=== PATIENT | female | born 1940 | race Caucasian/White ===

== ENCOUNTER 2024-08-18 11:32 | Emergency (ER) | payer MEDICARE, SELFPAY ==
[2024-08-18 11:38] VITALS: BP 125/67; PULSE 107; RESP 18; TEMP 36.6; O2SAT 92; BMI 20.6
--- NOTE | 2024-08-18 11:40 | ED_ITS ---
HPI - Skin/Abscess/Foreign Bdy General Chief complaint: Skin/Abscess/Foreign Body Stated complaint: lump in RT arm Time Seen by Provider: 08/18/24 11:52 Source: patient and family Mode of arrival: ambulatory Limitations: no limitations History of Present Illness ED Provider: Nicolas Heath PA-C HPI narrative: 84 yo female presenting to the ER for evaluation of a painful, red, enlarging lump on the upper right arm for the last 5 days. Daughter is concerned it is infected from a spider bite or her scratching it because it started as a small hole and now has a black scab, reddened skin and is much larger that it has been. She reports history of a small cyst in the same area that has never been infected or drained before. There has been purulent drainage the last 2 days. no fevers. no hx DM. no other lesions. MD complaint: abscess/boil Onset (ago): day(s) (5) Tetanus up to date: yes Location: RUE Severity: moderate Severity scale (1-10): 5 Quality: dull Relieving factors: rest Exacerbating factors: palpation Context: none Associated symptoms: denies other symptoms Treatments prior to arrival: bandages Related Data Previous Rx's ?Medication ?Instructions ?Recorded cephalexin 500 mg capsule 500 mg PO Q6H 5 days #20 caps 08/18/24 doxycycline monohydrate 100 mg 100 mg PO BID #10 tabs 08/18/24 tablet Allergies Allergy/AdvReac Type Severity Reaction Status Date / Time celecoxib [From Celebrex] Allergy Palpitation Verified 08/18/24 11:40 s Review of Systems Review of Systems: Yes all other systems are reviewed and are negative [facility] Social History Social History Advance Directives: No Advance Directives Information Provided: Yes Physical Exam Vital Signs: Vital Signs: Last Vital Signs Temp 98 F 08/18/24 11:38 Pulse 107 H 08/18/24 11:38 Resp 18 08/18/24 11:38 BP 125/67 08/18/24 11:38 Pulse Ox 92 08/18/24 11:38 BMI result Body Mass Index 20.6 Appearance: Alert. Oriented X3. No acute distress. HEENT: normal inspection CVS: Normal heart rate and rhythm. Pulses in RUE normal. Respiratory: No respiratory distress. Skin: Skin warm and dry. Normal skin color. Normal skin turgor. No rashes. Extremities: right upper arm with a 4cm round area of swelling, tenderness with central erythema and eschar scab 1cm, +fluctuance and mild induration. Neuro: Oriented X 3. grossly normal, nonfocal. steady gait Course Course Course Narrative: This is a Rapid Medical Examination (RME) performed by Nicolas Heath PA-C in triage. Full HPI, ROS, assessment and treatment plan per primary provider in the Main ED. 84 yo female presents to the ER for evaluation of a painful lump on the right upper arm for the last 5 days. daughter thinks she may have gotten bitten by a spider, it started as a small hole. has had purulent drainage and now has a large black scab. no fevers. no hx dm. on exam there is a 4cm area of swelling in the upper arm with partial erythema and warmth, eshcar and fluctuance centrally. Plan: I&D, abx Medications Administered Discontinued Medications Generic Name Dose Route Start Last Admin Trade Name Freq PRN Reason Stop Dose Admin Lidocaine HCl 2 ml 08/18/24 11:52 08/18/24 12:12 Lidocaine Hcl 1 % Mpf 2 Ml Vial INFILTRATI 08/18/24 11:53 2 ml ONCE ONE Administration Medical Decision Making Medical Decision Making MDM Narrative: 84 yo female presenting for evaluation of a painful lump to the right upper arm for the last 5 days. she has a history of a small cyst in the area for years but never has been this large, red, or painful exam is c/w an inflammed and infected cyst. I&D today with large volume of foul smelling purulent material. area was packed will prescribe abx given overlying cellulitis advised she will likely need dermatology follow up for possible cyst excision - she has been seen at [facility] in the past stable for d/c home, advised to return for packing removal in 2-3 days Differential Diagnosis Differential Diagnoses: The differential diagnosis associated with the presentation includes abscess, cyst, spider bite, cellulitis Independent Historian Clinical information obtained from an independent historian. History obtained from or confirmed by: Other (adult daughter wilfrido who helped translate) Prescription Management I considered prescription management with: Pain Medication and Antibiotic Procedures Abscess I/D Site: upper extremity Side (if applicable): right Local Anesthetic: lidocaine 1% Amount of anesthesia used (mL): 1 Technique: incised with blade Sent for culture/gram staining?: No Irrigation: Yes Packing used?: iodoform Critical Care Time Critical Care Time Critical Care Time: No Discharge Plan Discharge Clinical Impression: Abscess of skin or subcutaneous tissue Qualifiers: Site of cutaneous abscess: extremity Site of cutaneous abscess of extremity: upper extremity Laterality: right Qualified Code(s): L02.413 - Cutaneous abscess of right upper limb Patient Disposition: Home, Self-Care Instructions: Abscess Incision and Drainage (DC) Additional Instructions: Take the prescribed antibiotics as directed, complete the entire course and do not miss any doses The packing will need to be removed in 2-3 days, you can see your doctor or return to the ER for this Recommend following up with Dermatology for further evaluation and treatment, possible excision of the cyst wall If you develop new or worsening symptoms call 911 or come back to the ER for further evaluation. Prescriptions: New doxycycline monohydrate 100 mg tablet 100 mg PO BID Qty: 10 0RF cephalexin 500 mg capsule 500 mg PO Q6H 5 Days Qty: 20 0RF Discharge Date/Time: 08/18/24 12:24 Print Language: Citizen Of [place]
[2024-08-18] MEDS: Lidocaine HCl 1 % MPF 2 ML VIAL INFILTRATI (12:12)
== END 2024-08-18 12:24 | disposition home or self-care (01) ==
PROVIDERS: Emergency Provider Emergency Medicine
DX: L02.413 Cutaneous abscess of right upper limb (principal); M79.621 Pain in right upper arm
CPT/HCPCS: 10060; 99282; 99284; J2003

== ENCOUNTER 2024-11-27 13:54 | Inpatient (IN) | payer MEDICARE, SELFPAY ==
[2024-11-27] VITALS (13 sets, daily range): BP systolic 97–138; BP diastolic 39–120; PULSE 114–136; RESP 16–29; TEMP 36.1–38.1; O2SAT 2–98; BMI 23.2
--- NOTE | ~2024-11-27 | XR_ITS ---
EXAMINATION: XR CHEST CLINICAL INFORMATION: SOB COMPARISON: None available. TECHNIQUE: Frontal view of the chest was obtained. FINDINGS: The cardiac, hilar, and mediastinal contours are normal. Aortic mural calcifications. There is diffuse pulmonary hyperaeration. There is airspace disease in the peripheral left mid and lower lung. No pneumothorax or effusion. No focal osseous or soft tissue abnormality. XR/XR chest 1V IMPRESSION: 1. Pulmonary hyperaeration. 2. Patchy airspace disease mid and lower left lung, suspicious for pneumonia in the appropriate clinical setting. Electronically signed by: Martinez Meyer MD 11/27/2024 03:13 PM EDT
--- NOTE | ~2024-11-27 | XR_ITS ---
EXAMINATION: XR CHEST 1 VIEW HISTORY: pneumonia COMPARISON: Comparison is made with the prior examination dated 12/01/2024. FINDINGS: Two AP portable views of the chest performed at 7:35 AM are submitted. Again seen is a small to moderate left pleural effusion. There is airspace opacity in the left lower lung zone. There are nodular opacities in both lungs as noted on CT 12/03/2024. There is no pneumothorax. The heart is normal in size. The aorta is calcified. The bones are intact. XR/XR chest 1V IMPRESSION: Small to moderate left pleural effusion. Left basilar pneumonia. Nodular opacities in both lungs as noted on chest CT. Electronically signed by: Samson Azevedo MD 12/05/2024 08:06 AM EDT
--- NOTE | ~2024-11-27 | CT_ITS ---
EXAMINATION: CT CHEST WITHOUT CONTRAST CLINICAL INFORMATION: Hypoxia DLP: 140 mGY*cm COMPARISON: Chest x-ray December 01, 2024 DLP: 140 mGY*cm TECHNIQUE: Multidetector volumetric CT imaging of the chest was done. Axial MIP volume rendering provided. Sagittal and coronal reformatted images were obtained. This CT examination was performed using dose optimization techniques as appropriate, variously including the following: *Automated exposure control *Adjustment of mA and/or kV according to patient size (this includes techniques or standardized protocols for targeted exams where dose is matched to indication/reason for exam; i.e. extremities or head) *Use of iterative reconstruction technique FINDINGS: LUNGS: Actually groundglass and airspace opacities are present in the lungs bilaterally. There are air bronchograms in the anteromedial and lateral segments of the left lower lobe as well as inferior segment of lingula. MEDIASTINUM: There is a 14 mm short axis diameter precarinal lymph node. CORONARY ARTERY CALCIFICATION: Present PLEURA: Small right and small to medium left layering pleural effusions are present. AXILLA: No lymphadenopathy. UPPER ABDOMEN: Unremarkable. 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 There are degenerative chronic erosive type changes along the humeral head margins. CT/CT chest wo IV con IMPRESSION: Multifocal pneumonia most advanced in the left lower lung base and lingula. There are layering bilateral pleural effusions, larger on the left. Underlying pulmonary nodules cannot be ruled out. Follow-up to radiographic resolution. Lymphadenopathy. There is an enlarged precarinal lymph node. This could be inflammatory/reactive, but neoplastic adenopathy is not ruled out. Degenerative changes in the shoulder joints with possible marginal erosions raises question of underlying rheumatoid arthritis or other inflammatory arthropathy. 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 Fleischner guidelines were followed. Electronically signed by: Andrea Fregoso MD 12/03/2024 05:24 PM EDT
--- NOTE | ~2024-11-27 | XR_ITS ---
CLINICAL HISTORY: F U Pneumonia 1 view chest x-ray Comparison: CR/AK/SR - XR CHEST 1V - 11/27/24 14:59 EDT Findings: There is a new moderate-sized left pleural effusion and small right pleural effusion. Diffuse patchy opacities throughout the left lung base, as well as patchy opacity at the apices and scattered areas in the right mid and lower lung. Pulmonary vessels appear prominent. Heart size is normal. No acute fracture. IMPRESSION: 1. New moderate left and small right pleural effusions. 2. Diffuse patchy opacities in both lungs which may be infection, pulmonary edema, aspiration. 3. Prominent pulmonary vasculature suggests an element of vascular congestion. This document has been electronically signed by: Shashank Orona MD on 12/01/2024 11:13:32
--- NOTE | 2024-11-27 13:56 | ECG_ITS ---
Test Reason : abnormal ekg Blood Pressure : */* mmHG Vent. Rate : 141 BPM Atrial Rate : 141 BPM P-R Int : 138 ms QRS Dur : 82 ms QT Int : 274 ms P-R-T Axes : 73 13 72 degrees QTcB Int : 419 ms Sinus tachycardia Minimal voltage criteria for LVH, may be normal variant ( Sokolow-James ) Borderline ECG No previous ECGs available Referred By: Depea Randhawa Electronically Signed By: SG BARTLETT
--- NOTE | 2024-11-27 14:19 | ED_ITS ---
HPI - General Adult General Chief complaint: Dyspnea Stated complaint: abnormal ekg Time Seen by Provider: 11/27/24 14:56 Source: patient, family (patient's daughter) and assistant boiler operator (patient declined [facility] assistant boiler operator and requested her daughter interpret) Mode of arrival: ambulatory Limitations: language barrier (patient declined [facility] assistant boiler operator and requested her daughter interpret) History of Present Illness ED Provider: Alejandra Diaz PA-C HPI narrative: Patient is an 84 year old assigned female at with no reported medical history presenting to the emergency department today with a cough and lethargy. Patient states that she has felt generally unwell / weak with coughing over the last 3 days. Patient denies any dizziness, lightheadedness, abdominal pain, nausea, vomiting, fever, chills, blurry vision, double vision, loss of vision, chest pain, difficulty breathing, shortness of breath, back pain, night sweats, pain with urination, increased urinary frequency, increased urinary urgency, blood in her urine or stool, syncope or a near syncopal episode, recent trauma or falls, bowel incontinence, bladder incontinence, or any other complaints at this time. Onset (ago): day(s) (3) Relieving factors: none Exacerbating factors: none Associated symptoms: cough Treatments prior to arrival: none Related Data Allergies Allergy/AdvReac Type Severity Reaction Status Date / Time celecoxib (From Celebrex) Allergy Palpitation Verified 11/27/24 14:21 s Review of Systems 2 Constitutional: Constitutional: Reports no additional constitutional complaints, Denies chills, Denies fever(s), Denies night sweats and Reports weakness Eyes: Eyes: Reports no additional eye complaints, Denies blurry vision, Denies change in vision, Denies diplopia, Denies eye discharge, Denies loss of vision and Denies eye pain ENT: Denies dizziness Cardiovascular: Cardiovascular: Reports no additional cardiovascular complaints, Denies chest pain, Denies lightheadedness, Denies Loss of Consciousness and Denies dyspnea Respiratory: Respiratory: Reports no additional respiratory complaints, Reports cough and Denies dyspnea Gastrointestinal: Gastrointestinal: Reports no additional gastrointestinal complaints, Denies abdominal pain, Denies melena, Denies hematochezia, Denies change in bowel habits and Denies change in stool character Genitourinary: Genitourinary: Denies hematuria, Denies urinary frequency, Denies dysuria, Denies urinary incontinence, Denies urinary hesitancy and Denies urinary urgency Musculoskeletal: Musculoskeletal: Reports no additional musculoskeletal complaints, Denies numbness and Denies tingling Neurologic: Denies dizziness, Denies loss of vision, Denies numbness, Denies tingling and Reports weakness Psychiatric: Psychiatric: Reports no additional psychiatric complaints Endocrine: Endocrine: Reports no additional endocrine complaints Hematologic/Lymphatic: Hematologic/Lymphatic: Reports no additional hematologic/lymphatic complaints Allergic/Immunologic: Allergic/Immunologic: Reports no additional allergic/immunologic complaints PMFSH Past Medical History Attestation statement: The following information was validated with the patient. (all information validated with the patient's daughter) Source: old records reviewed, obtained from family (patient's daughter provided additional history and confirmed the history provided by the patient.) and nursing notes reviewed Social History Social History Smoked in Last 30 Days: Yes Use of substances other than those prescribed or required for medical reasons: No Advance Directives: No Advance Directives Information Provided: Yes Physical Exam ED Vital Signs: Vital Signs - 24 hr 11/27/24 14:15 11/27/24 14:21 11/27/24 14:31 Temperature 98.0 F 100.5 F H Pulse Rate 136 H 132 H 133 H Respiratory Rate 16 20 Blood Pressure 138/110 H 103/39 L Pulse Oximetry 84 L 91 L 96 Oxygen Delivery Method Room Air Nasal Cannula Nasal Cannula Oxygen Flow Rate 3 3 11/27/24 15:31 11/27/24 15:47 Temperature Pulse Rate 125 H 124 H Respiratory Rate 24 H 24 H Blood Pressure 106/52 L 122/120 H Pulse Oximetry 96 96 Oxygen Delivery Method Nasal Cannula Nasal Cannula Oxygen Flow Rate 3 2 BMI result Body Mass Index 23.2 Const General: cooperative, no acute distress, alert and awake Nutritional Appearance: well nourished Orientation/consciousness: patient oriented x3 HENMT Head: Yes normal to inspection and Yes atraumatic Ears: hearing grossly normal bilaterally and external ears normal General nose exam: Normal external nose present, no nasal discharge noted and no epistaxis Face and sinus: Yes normal facial exam, No abrasion and No laceration Mouth: Normal oral and palatal mucosa present, no drooling and no muffled voice Eyes General: appearance normal, both eyes and all related structures Periorbital: periorbital findings normal Eyelids: Yes eyelids normal Conjunctivae: conjunctivae normal Pupils: Equal, round and reactive pupils present EOM: EOMs intact bilaterally Neck Neck: Yes normal visual inspection, Yes full ROM and Yes no lymphadenopathy Resp Effort & Inspection: normal respiratory effort and able to speak in complete sentences Auscultation: rales on the right Cardio Rate: tachycardic Rhythm: regular rhythm Neuro General: patient oriented x3, moves all extremities and CN's II-XI intact bilaterally Cranial nerves: Yes Equal, round and reactive pupils present Cognition (Neuro): normal cognition Extrem General: Yes normal to inspection, Yes full ROM and Yes capillary refill normal Psych Appearance: grossly normal Mental Status: mental status grossly normal Affect: normal affect Attitude: cooperative Thought process: Normal thought process present Thought content: Normal thought content present Insight: Good insight present (Psych) Course Course Course Narrative: This is a rapid medical exam performed by Marianne Randhawa NP: Additional HPI, ROS, PE not included below will be deferred to primary provider. Patient is an 84-year-old [place]an speaking female with history of COPD sent to ED by Dr. Zafar after she was found to be hypoxic in her office. Daughter states patient has had fever to 101, productive cough. Patient hypoxic and tachycardic in triage. Plan: EKG, labs, CXR, charge aide notified, patient to go directly to ED room Medications Administered Generic Name Dose Route Start Last Admin Trade Name Freq PRN Reason Stop Dose Admin Enoxaparin Sodium 40 mg 11/27/24 17:00 11/27/24 17:10 Enoxaparin Sodium 40 Mg/0.4 Ml Syringe SUBCUT 40 mg Q24H EDITH Administration Discontinued Medications Generic Name Dose Route Start Last Admin Trade Name Freq PRN Reason Stop Dose Admin Ceftriaxone Sodium 1 gm 11/27/24 14:56 11/27/24 15:10 Ceftriaxone Sodium 1 Gm Vial IVPUSH 11/27/24 14:57 1 gm ONCE ONE Administration Acetaminophen 1,000 mg in 100 mls @ 400 mls/hr 11/27/24 14:56 11/27/24 15:29 Ofirmev IV 11/27/24 15:10 Infused ONCE ONE Infusion Sodium Chloride 1,837.05 mls @ 1,837.05 mls/hr 11/27/24 15:23 11/27/24 15:27 Ns 30 ml/kg infuse over 1 hr (1837.05 ml) 11/27/24 16:22 1,837.05 mls/hr IV Administration .Q1H STA Medical Decision Making Medical Decision Making [facility] Narrative: Patient is an 84 year old assigned female at with no reported medical history presenting to the emergency department today with a cough and lethargy. Patient's physical exam was as noted in the physical exam portion of this note. Patent was initially hypoxic at 84% on RA. Patient was placed on 3 liters of NC oxygen and brought up to 96%. Patient's blood work showed a WBC count of 15.2 with a bandemia of 21, initial troponin of 41.2 (likely secondary to infection and not ischemia), BNP of 303, AST of 72, and ALT of 33. Patient's urine showed no acute process. Patient's EKG showed sinus tachycardia. Patient's chest x-ray showed evidence of PNA. Patient's clinical presentation is most consistent with sepsis secondary to pneumonia (@1456). Patient was given IV fluids and IV ceftriaxone. I spoke with the hospitalist team who agreed to admission. I explained my physical exam findings as well as all test results to the patient and the patient's daughter. I answered all questions asked by the patient and the patient's daughter. Patient and the patient's daughter verbalized agreement and understanding with this treatment plan and admission. Differential Diagnosis Differential Diagnoses: The differential diagnosis associated with the presentation includes Hyoxia Pneumonia Sepsis Admission/Observation Consideration of admission/observation: Escalation of care including admission/observation considered Patient admitted as noted in the MDM Rationale portion of this note. Consult Healthcare Provider Management of the patient was discussed with: Hospitalist (Agreed to admission as noted in the MDM Rationale portion of this note. ) Lab Data [facility] Lab Attestation statement: I reviewed the patient's lab results. My interpretation of these results are in the MDM Rationale portion of this note. 11/27/24 14:47 11/27/24 14:47 Labs: Lab Results 11/27/24 11/27/24 11/27/24 Range/Units 14:47 14:55 15:10 WBC 15.2 H (4.8-10.8) X10*3/uL RBC 3.65 L (4.20-5.50) X10*6/uL Hgb 10.4 L (12.0-16.0) g/dl Hct 32.4 L (37.0-47.0) % MCV 88.8 (80.0-98.0) fL MCH 28.5 (27.0-33.0) pg MCHC 32.1 (31.0-35.0) g/dl RDW 13.7 (11.0-16.0) % Plt Count 271 (160-400) X10*3/uL MPV 8.8 L (9.4-12.3) fL Immature Gran % (Auto) Cancelled Neut % (Auto) Cancelled Lymph % (Auto) Cancelled [place] % (Auto) Cancelled Eos % (Auto) Cancelled Baso % (Auto) Cancelled Lymph # (Auto) Cancelled [place] # (Auto) Cancelled Eos # (Auto) Cancelled Baso # (Auto) Cancelled Abs Immat Gran (auto) Cancelled Absolute Neuts (auto) Cancelled Absolute Nucleated RBC 0.000 (0.0-0.012) X10*3/uL Nucleated RBC % (auto) 0.0 (0.0-0.2) /100WBC Neutrophils % (Manual) 66 (45-73) % Band Neutrophils % 21 H (3-5) % Lymphocytes % (Manual) 2 L (20-40) % Monocytes % (Manual) 11 (2-11) % Abs Neuts (Manual) 13.2 H (2.0-8.3) X10*3/uL Lymphocytes # (Manual) 0.3 L (1.2-4.9) X10*3/uL Monocytes # (Manual) 1.7 H (0.1-1.2) X10*3/uL Dohle Bodies PRESENT Platelet Estimate NORMAL (NORMAL) Plt Morphology Comment NORMAL RBC Morphology NOTED Polychromasia 1+ (0-2) /OIF PT 13.1 H (10.9-12.4) SEC INR 1.1 (0.9-1.1) VBG pH 7.40 (7.32-7.43) VBG pCO2 58 mmHg VBG pO2 50 mmHg VBG HCO3 36 H (22-26) mmol/L VBG O2 Saturation 71.0 % VBG Base Excess 10.0 mmol/L Sodium 139 (135-145) mmol/L Potassium 4.4 (3.3-5.1) mmol/L Chloride 99 (96-108) mmol/L Carbon Dioxide 31 H (22-29) mmol/L Anion Gap 13 (12-20) BUN 48 H (9-16) mg/dL Creatinine 0.66 (0.5-1.4) mg/dL Estim Creat Clear Calc 52.8 Estimated GFR > 60 Random Glucose 156 H (60-115) mg/dL Lactic Acid 1.5 (0.5-2.0) mmol/L Calcium 9.5 (8.4-10.2) mg/dL Total Bilirubin 0.2 (0.0-1.0) mg/dL AST 72 H (5-31) U/L ALT 33 H (0-31) U/L Alkaline Phosphatase 80 (39-117) U/L Troponin I High Sens 41.2 H (<3.5-17.0) ng/L B-Natriuretic Peptide 303 H (<100) pg/mL Total Protein 6.5 (6.5-8.0) g/dL Albumin 3.4 L (3.5-5.0) g/dL Urine Color Yellow Urine Appearance Clear Urine pH 6.0 (5.0-9.0) Ur Specific [place] 1.020 (1.005-1.025) Urine Protein Trace (Neg-Trace) mg/dL Urine Glucose (UA) Negative (Negative) mg/dL Urine Ketones Negative (Negative) mg/dL Urine Blood Trace (Negative) Urine Nitrite Negative (Negative) Ur Leukocyte Esterase Small (1+) H (Negative) Urine RBC 3-5 H (0-2) /HPF Urine WBC 6-10 H (0-5) /HPF Ur Squamous Epith Cells 3-5 (0-2) /HPF Urine Bacteria None Seen (None Seen) Hyaline Casts >20 (0-2) /LPF Independent Interpretation I performed an independent interpretation of an: EKG and Plain X-Ray Interpretation: My interpretation is in agreement with the radiologist's impression of this imaging study. L EXAMINATION: XR CHEST CLINICAL INFORMATION: SOB COMPARISON: None available. TECHNIQUE: Frontal view of the chest was obtained. FINDINGS: The cardiac, hilar, and mediastinal contours are normal. Aortic mural calcifications. There is diffuse pulmonary hyperaeration. There is airspace disease in the peripheral left mid and lower lung. No pneumothorax or effusion. No focal osseous or soft tissue abnormality. XR/XR chest 1V IMPRESSION: 1. Pulmonary hyperaeration. 2. Patchy airspace disease mid and lower left lung, suspicious for pneumonia in the appropriate clinical setting. Electronically signed by: Martinez Meyer MD 11/27/2024 03:13 PM EDT RP Dictated By: Martinez Meyer MD Signed By: Electronically signed by Martinez Meyer MD 11/27/24 1513 I independently interpreted this EKG and am in agreement with the below findings: Vent. Rate: 141 BPM Atrial Rate: 141 BPM P-R Int: 138 ms QRS Dur: 82 ms QT Int: 274 ms P-R-T Axes: 73 13 72 degrees QTcB Int: 419 ms Sinus tachycardia Minimal voltage criteria for LVH, may be normal variant (Sokolow-James) No previous ECGs available Referred By: Deepa Randhawa Electronically Signed By: GHANSHYAM BARTLETT Dictated By: Ghanshyam Bartlett MD Signed By: Electronically signed by Ghanshyam Bartlett MD 11/27/24 1546 Radiology Impression Discussion of test interpretation with radiology: I have reviewed the radiologist's reading. Independent Historian Clinical information obtained from an independent historian. History obtained from or confirmed by: Other (Patient's daughter provided additional history and confirmed the history provided by the patient. ) Critical Care Time Critical Care Time Critical Care Time: Yes Total Critical Care Time: 38 Attestation: I spent 38 minutes of Critical Care Time with this patient. This does not include time spent on separately reported billable procedures. Discharge Plan Discharge Clinical Impression: Pneumonia, Sepsis Patient Disposition: Admitted As Inpatient
--- NOTE | 2024-11-27 14:51 | PC.NURSE ---
84 F with hx COPD reports to ED with SOB x 3 days, was satting in 80s on RA upon arrival, now high 90s on 3L NC. Sts SOB ongoing, RR even but elevated, Rhochi throughout and lungs sound a bit tight. A+OX4. Denies any pain. Pt was febrile and HR was in 130s upon arrival.
[2024-11-27 14:57] LABS: Hematocrit 32.4 % (37.0-47.0); Hemoglobin 10.4 g/dl (12.0-16.0); Mean Corpuscular HGB Conc 32.1 g/dl (31.0-35.0); Mean Corpuscular Hemoglobin 28.5 pg (27.0-33.0); Mean Corpuscular Volume 88.8 fL (80.0-98.0); NRBC Abs Auto 0.000 X10*3/uL (0.0-0.012); NRBC Pct Auto 0.0 /100WBC (0.0-0.2); Platelet Count 271 X10*3/uL (160-400); Red Blood Count 3.65 X10*6/uL (4.20-5.50)
[2024-11-27 14:59] LABS: Venous Blood Gas Refer to POC result
[2024-11-27 14:59] LABS: VBG HCO3 36 mmol/L (22-26); VBG O2 % Saturation 71.0 %
[2024-11-27 15:01] LABS: WBC ABN SCTR FOR CBC 1; White Blood Count 15.2 X10*3/uL (4.8-10.8)
[2024-11-27 15:13] LABS: Alanine Aminotransferase 33 U/L (0-31); Albumin Level 3.4 g/dL (3.5-5.0); Alkaline Phosphatase 80 U/L (39-117); Anion Gap 13 (12-20); Aspartate Amino Transferase 72 U/L (5-31); Blood Urea Nitrogen 48 mg/dL (9-16); Calcium 9.5 mg/dL (8.4-10.2); Carbon Dioxide 31 mmol/L (22-29); Chloride 99 mmol/L (96-108); Creatinine Clr Calc Pharmacy 52.8; Estimated Glomerular Filt Rate > 60; Potassium 4.4 mmol/L (3.3-5.1); Sodium 139 mmol/L (135-145); Total Protein 6.5 g/dL (6.5-8.0)
[2024-11-27 15:15] LABS: INTERNATIONAL NORM RATIO 1.1 (0.9-1.1); Prothrombin Time 13.1 SEC (10.9-12.4)
[2024-11-27 15:18] LABS: B Type Natriuretic Peptide 303 pg/mL (<100)
[2024-11-27 15:19] LABS: Appearance Urine Clear; Glucose Urine UA Negative (Negative); PH 6.0 (5.0-9.0); Specific Gravity - Urine 1.020 (1.005-1.025); UMIC TRIGGER UACC YES
[2024-11-27 15:19] LABS: Troponin-I High Sensitivity 41.2 ng/L (<3.5-17.0)
[2024-11-27] MEDS: 0.9 % Sodium Chloride 1,837.05 ML 1837.05 ML IV (15:27)
[2024-11-27 15:40] LABS: UACC Culture Trigger YES
[2024-11-27 15:43] LABS: Neutrophils Percent Manual 66 % (45-73)
[2024-11-27 15:45] LABS: Band Neutrophils Percent 21 % (3-5); Lymphocytes Absolute Manual 0.3 X10*3/uL (1.2-4.9); Lymphocytes Percent Manual 2 % (20-40); Monocytes Absolute Manual 1.7 X10*3/uL (0.1-1.2); Monocytes Percent Manual 11 % (2-11); Neutrophils Absolute Manual 13.2 X10*3/uL (2.0-8.3)
[2024-11-27 15:46] LABS: Dohle Bodies PRESENT; RBC Morphology NOTED
[2024-11-27 15:47] LABS: Polychromasia 1+ (0-2) /OIF
--- NOTE | 2024-11-27 16:19 | P.HPHOSP_ITS ---
History of Present Illness Date of Service: 11/27/24 Chief Complaint: shortness of breath 84 year old kiswahili speaking patient, acompanied by her daughter who speaks kiswahili. Acoording to her daughter, patient has been since for about 3 days now with symptoms of lethargy, cough with phlegm production, poor apetite. She has been refusing to seek medical care until today when she was seen at her PCP office and noted to be in respiratory distresss, tachycardic, new murmur heard and hypoxic. She was then directed to come to the ED where she is noted to be tachycardic HR into 130's, tachypnic and O2 saturation as low as 84% and now better with oxygen, temp of 100.5. Further testing include WBC of 15.2, 21 bands Neutrophills, VBG is reassuring, AST and ALT mildly elevated 72/33 respectively. UA is consistent with UTI as well. BNP is 303. CXR show 1. Pulmonary hyperaeration. 2. Patchy airspace disease mid and lower left lung, suspicious for pneumonia in the appropriate clinical setting. ED treatm,ent: IVF, IV ceftriaxone and APAP Review of Systems 2 Review of Systems: Gen: no fever Resp: + sob, + cough CV: no chest, +THOMSON, no leg edema GI: No n/v, no abd pain Neuro: No confusion Yes all other systems are reviewed and are [facility] Social History Household Members: Children Household Members Other:: in law apartment attached to daughters home Housing: House Do you presently have visiting nurse or other home services: No Patient Tobacco Use Status: Current everyday Tobacco user Tobacco use type: Cigarette Cigarettes Per Day: 5 Years Smoked: 50 Smoked in Last 30 Days: Yes e-Cigarette/Vaping Use: Never Used Patient Interested in Nicotine Replacement: No Use of substances other than those prescribed or required for medical reasons: No Currently Displaying Signs/Symptoms of Drug Intoxication Withdrawal: No Have you been hit, kicked, punched, or otherwise hurt by someone within the past year? If so, by whom?: No Do you feel safe in your current relationship?: Yes Is there a partner from a previous relationship who is making you feel unsafe now?: No Are you made to feel afraid or neglected: No [facility] Practices: Nondenominational Advance Directives: No Advance Directives Information Provided: Yes Do you have a plan to hurt others: No Plan Recently lost weight without trying: Yes How much weight loss: 2-13 pounds Eating poorly because of decreased appetite: Yes Nutrition screen score: 4 Nutrition Risks: Poor intake 0-25% >4 days Patient : No : No Poor oral hygiene: No service: No Meds Allergies Allergy/AdvReac Type Severity Reaction Status Date / Time celecoxib (From Celebrex) Allergy Palpitation Verified 11/27/24 14:21 s Active Medications: Current Medications Acetaminophen (Acetaminophen 325 Mg Tablet) 650 mg PO Q6H PRN PRN Reason: Pain, Mild 1-3,fever,headache Calcium Carbonate (Calcium Carbonate 750 Mg Tab.Chew) 750 mg PO Q4H PRN PRN Reason: Heartburn Sodium Chloride (Ns) 1,837.05 mls @ 1,837.05 mls/hr 30 ml/kg infuse over 1 hr (1837.05 ml) IV .Q1H STA Stop: 11/27/24 16:22 Last Admin: 11/27/24 15:27 Dose: 1,837.05 mls/hr Magnesium Hydroxide (Milk Of Magnesia 30 Ml Oral.Susp) 30 ml PO DAILY PRN PRN Reason: Constipation Melatonin (Melatonin 3 Mg Tablet) 6 mg PO BEDTIME PRN PRN Reason: Insomnia Sodium Chloride (0.9 % Sodium Chloride Flush 3 Ml Syringe) 3 ml IVFLUSH QSHIFT [facility] Home Medications ?Medication ?Instructions ?Recorded ?Confirmed ?Last Taken ?Type acetaminophen 325 mg tablet 650 mg PO Q4H PRN Pain 11/27/24 Unknown History ibuprofen 200 mg tablet (Advil) 400 mg PO Q6H PRN Pain 11/27/24 11/27/24 Unknown History loratadine 10 mg tablet (Claritin) 10 mg PO DAILY PRN Allergy Symptoms 11/27/24 11/27/24 Unknown History Physical Exam 2 Vital Signs and Narrative: Vital Signs: Last Vital Signs Temp 100.5 F H 11/27/24 14:31 Pulse 124 H 11/27/24 15:47 Resp 24 H 11/27/24 15:47 BP 122/120 H 11/27/24 15:47 Pulse Ox 96 11/27/24 15:47 O2 Del Method Nasal Cannula 11/27/24 15:47 O2 Flow Rate 2 11/27/24 15:47 BMI result Body Mass Index 23.2 General: AO X 3, no acute distress HEENT: normal sclera, oral mucosa moiist, no lesion Resp: CTA bilateral CVS: S1,S2,RRR GI: +BS, NT, no distention Skin: No rash Neuro: motor grossly intact Psych: appropriate affect Results Labs 11/27/24 14:47 11/28/24 06:19 Labs: Laboratory Results - last 24 hr 11/27/24 11/27/24 11/27/24 14:47 14:55 15:10 MCV 88.8 MCH 28.5 MCHC 32.1 RDW 13.7 Plt Count 271 MPV 8.8 L Immature Gran % (Auto) Cancelled Neut % (Auto) Cancelled Lymph % (Auto) Cancelled Gates % (Auto) Cancelled Eos % (Auto) Cancelled Baso % (Auto) Cancelled Lymph # (Auto) Cancelled Gates # (Auto) Cancelled Eos # (Auto) Cancelled Baso # (Auto) Cancelled Abs Immat Gran (auto) Cancelled Absolute Neuts (auto) Cancelled Absolute Nucleated RBC 0.000 Nucleated RBC % (auto) 0.0 Neutrophils % (Manual) 66 Band Neutrophils % 21 H Lymphocytes % (Manual) 2 L Monocytes % (Manual) 11 Abs Neuts (Manual) 13.2 H Lymphocytes # (Manual) 0.3 L Monocytes # (Manual) 1.7 H Dohle Bodies PRESENT Platelet Estimate NORMAL Plt Morphology Comment NORMAL RBC Morphology NOTED Polychromasia 1+ (0-2) PT 13.1 H INR 1.1 VBG pH 7.40 VBG pCO2 58 VBG pO2 50 VBG HCO3 36 H VBG O2 Saturation 71.0 VBG Base Excess 10.0 Anion Gap 13 Estim Creat Clear Calc 52.8 Estimated GFR > 60 Random Glucose 156 H Lactic Acid 1.5 Calcium 9.5 Total Bilirubin 0.2 AST 72 H ALT 33 H Alkaline Phosphatase 80 Troponin I High Sens 41.2 H B-Natriuretic Peptide 303 H Total Protein 6.5 Albumin 3.4 L Urine Color Yellow Urine Appearance Clear Urine pH 6.0 Ur Specific [place] 1.020 Urine Protein Trace Urine Glucose (UA) Negative Urine Ketones Negative Urine Blood Trace Urine Nitrite Negative Ur Leukocyte Esterase Small (1+) H Urine RBC 3-5 H Urine WBC 6-10 H Ur Squamous Epith Cells 3-5 Urine Bacteria None Seen Hyaline Casts >20 Imaging Radiologist's Impressions: Impressions Chest X-Ray 11/27/24 13:59 IMPRESSION: 1. Pulmonary hyperaeration. 2. Patchy airspace disease mid and lower left lung, suspicious for pneumonia in the appropriate clinical setting. Electronically signed by: Martinez Meyer MD 11/27/2024 03:13 PM EDT RP Assessment and Plan (1) Pneumonia: Status: Acute Plan 84 year old female with no listed chronic medicaal conditions here with sob, cough with sputum production and found to haveUTI, PNA and sepsis, and new systolic murmur Sepsis d/t PNA causing acute hypoxic respiratory failure Continue Ceftriaxone, add Azithrom follow cultures O2 to keep sat 94 to 96 % UTI Ceftriaxone as above Murmu, suspect murmur echocardiogram Elevated LFTs, likely from sepsis' follow and if not trending down, get US DVT prophylaxis: levenox Full code at least 2 midnights admit for management of sepsis d'/t PNA, need for IV abx, further w/u of new murmur Plan of care discussed with daughter and son-in-law at the bedside Quality Stroke Does the patient have a stroke diagnosis?: No VTE Prior VTE?: No VTE Risk Level:: Medical - moderate - high VTE Device Contraindication: Treatment Not Indicated VTE Drug Contraindication: N/A - Med Ordered
--- NOTE | 2024-11-27 18:12 | PC.NURSE ---
fluids are taking a long time to infuse because the pt keeps bending her arm, fluids have been put on the pump to help with the quicker administration
--- NOTE | 2024-11-27 19:41 | PHA.MEDREC ---
Addendum entered by Narda Avalos RPh 11/27/24 19:44: REVIEWD BY [facility] Original Note: Pharmacy Consult ? Medication Reconciliation Pharmacy has completed the medication reconciliation. Spoke with pt daughter at bedside and she confirmed the pt is only taking Tylenol and Ibuprofen as needed for pain; stating her mom alternated taking them. The daughter also confirmed the pt takes Claritin 10mg tabs as needed for allergies.
--- NOTE | 2024-11-27 20:16 | MHC.EDTECH ---
pt was assisted to bedside commode to urinate. pt was able to clean herself independently, and was then assisted back in bed. call baez within reach.
[2024-11-27] MEDS: 0.9 % Sodium Chloride Flush 3 ML SYRINGE IVFLUSH (22:23)
[2024-11-28 03:23] VITALS: BP 100/58; PULSE 110; RESP 18; TEMP 36.7; O2SAT 93
--- NOTE | 2024-11-28 07:00 | CA_ITS ---
Transthoracic Echocardiogram Patient (Last, First, Middle): Myke Stacy, Gender: Female Date of : 1940 Age: 84 Procedure Date: 11/28/2024 Procedure Type: Transthoracic Echocardiogram [place] [facility] [place] Height: 162.56 cm Weight: 60.78 kg BSA: 1.65 m2 Heart Rate: 118 bpm BP: 103 / 54 mmHg Application Consultant: SB/EMMA Referring MD: Dwayne Graves MD Symptoms: SOB, systolic murmur Study Quality: Adequate ECG Rhythm: Tachycardia Conclusions: - The left ventricular systolic function is low normal. The visually estimated ejection fraction is between 50-55%. - There is moderately increased left ventricular wall thickness. - There is severe aortic valve stenosis. - There is severe mitral annular calcification. Findings Left Ventricle Normal left ventricular cavity size. There is moderately increased left ventricular wall thickness. The left ventricular systolic function is low normal. The visually estimated ejection fraction is between 50-55%. Diastolic function is indeterminate on the basis of available data. There is severe septal asymmetric hypertrophy. Right Ventricle Normal right ventricular cavity size and systolic function. Atria Both atria are normal in size. Aortic Valve There is severe calcification of the aortic valve. There is severe aortic valve stenosis. The mean gradient is 46 mmHg. The aortic valve area is 0.59 cm2. There is no aortic valve regurgitation. Mitral Valve There is severe mitral annular calcification. There is trace mitral valve regurgitation. Mean gradient across the mitral valve 12 mm Hg at 115/Min- likely due to tachycardia. Doubt any significant mitral stenosis. Pulmonic Valve The pulmonic valve was not well visualized. Tricuspid Valve Normal tricuspid valve structure. There is trace tricuspid valve regurgitation. Borderline RVSP. Great Vessels The asc aorta is normal in size. Venous The inferior vena cava is normal in size and collapses greater than 50% with inspiration. Pericardium/Pleural There is no evidence of pericardial effusion. Prior Study Comparison No prior study available for comparison. Measurements 2D Linear Measurements IVSd: 1.58 0.6-0.9/0.6-1.0 cm LVIDd: 3.83 3.9-5.3/4.2-5.9 cm LVIDd Index: 2.32 2.4-3.2/2.2-3.1 cm/m2 LVIDs: 2.52 2.0-3.6 cm LVPWd: 1.34 0.7-1.1 cm LA Diam: 2.90 2.7-3.8/3.0-4.0 cm LAIDs Index: 1.76 1.5-2.3 cm/m2 LV Mass: 261.42 67-162/88-224 g LV Mass Index: 158.44 43-95/49-115 g/m2 LVOT Diam: 2.20 3.0+(-)1.3 cm 2D Systolic Function EF 4C: 47.20 >55% EF 2C: 52.70 >55% EF BiP: 49.00 >55% Mitral Valve MV VTI: 0.27 MV Pk Nathaniel: 2.18 MV Mn Nathaniel: 1.53 MV Pk Grad: 19.00 MV Mn Grad: 11.00 MVA Continuity: 1.90 Aortic Valve AoV Pk Nathaniel: 4.41 AoV Mn Nathaniel: 3.22 AoV VTI: 0.85 AoV Pk Grad: 78.00 Aov Mn Grad: 46.00 NATALIE Cont.VTI: 0.59 LVOT LVOT Pk Nathaniel: 0.82 LVOT Mn Nathaniel: 0.57 LVOT VTI: 0.13 LVOT Pk Grad: 3.00 LVOT Mn Grad: 2.00 LVOT Diam: 2.20 LVOT Area: 3.80 Right Ventricle TAPSE (mm): 19.10 TVS' Nathaniel: 12.10 Tricuspid Valve TR Pk Nathaniel: 2.82 TR Pk Grad: 32.00 RA Press: 3.00 RVSP: 35.00 Great Vessels Aorta Sinus of Valsalva: 2.80 2.0-3.5 cm Ao Asc: 3.30 2.1-3.4 cm Pulmonary Valve PV Pk Nathaniel: 1.43 Peak PV Grad: 8.00 Updated in Other Vendor System with Status of Final Ghanshyam Lujan MD electronically signed on 11/28/2024 11:28:45 AM with status of Final
[2024-11-28 07:12] VITALS: BP 103/54; PULSE 117; RESP 18; TEMP 36.7; O2SAT 96
[2024-11-28 07:33] LABS: Alanine Aminotransferase 41 U/L (0-31); Albumin Level 2.8 g/dL (3.5-5.0); Alkaline Phosphatase 73 U/L (39-117); Anion Gap 11 (12-20); Aspartate Amino Transferase 81 U/L (5-31); Blood Urea Nitrogen 46 mg/dL (9-16); Calcium 8.4 mg/dL (8.4-10.2); Carbon Dioxide 29 mmol/L (22-29); Chloride 106 mmol/L (96-108); Creatinine Clr Calc Pharmacy 67.0; Estimated Glomerular Filt Rate > 60; Potassium 4.3 mmol/L (3.3-5.1); Sodium 142 mmol/L (135-145); Total Protein 5.3 g/dL (6.5-8.0)
--- NOTE | 2024-11-28 09:10 | MHC.CM.PN ---
Addendum entered by Olga Garibay 11/28/24 10:50: CM met with Patient and Daughter/HCP/Mary Jo at bedside and addressed IMM with them verbally, in person, rather than mailing it. Patient lives in an In- Law apartment connected to her Daughter & Son-in-Laws home and she is rarely alone. Home/self care is Patient's goal and CM has initiated and will follow for dc planning. PCP is Dr. Winsome Zafar and Daughter will transport to home at time of dc. Original Note: CM attempted to meet with Patient at bedside but she was receiving care. CM attempted to speak with Daughter/Primary Contact/Mary Jo @ [phone], but was only able to leave a detailed message, addressing the IMM (original will be mailed certified letter to Daughter and a copy has been placed on the chart/IMM not available in Serbian). CM awaits a return call from Mary Jo. CM will follow.
--- NOTE | 2024-11-28 09:41 | P.CONCA_ITS ---
History of Present Illness History of Present Illness Date of Service: 11/28/24 Chief complaint: PNA Narrative: This is a cardiology consultation regarding aortic stenosis/congestive heart failure. Patient is speaking [place] and used iPad distribution operations manager for communication. Daughter is also at the bedside. According to them, she is quite healthy at baseline and generally not sick. She is quite active at baseline without any major limitations. Never had any cardiac issues in the past including coronary disease or myocardial infarction or cardiomyopathy or in fact anything of concern. For the last few days, having lethargy, cough, poor appetite. Then seen at PCP office and noted to be in respiratory distress with tachycardia. There was concern for new heart murmur. Then she was sent to the ER she was hypoxic and there was concern for infection/pneumonia and she was admitted. From the cardiac standpoint, we are asked to evaluate for any congestive heart failure/aortic stenosis. She states till this time she was actually doing quite well without any issues. Review of Systems 2 Review of Systems: Yes all other systems are reviewed and are negative Constitutional: Constitutional: Reports as per HPI and Reports no additional constitutional complaints Eyes: Eyes: Reports as per HPI and Denies no additional eye complaints ENT: Denies system reviewed and no additional complaints, except as documented and Reports as per HPI Cardiovascular: Cardiovascular: Reports as per HPI, Reports no additional cardiovascular complaints, Denies acrocyanosis, Denies cool extremities, Denies chest pain, Denies leg edema, Denies lightheadedness, Denies palpitations and Reports dyspnea Respiratory: Respiratory: Reports as per HPI, Denies no additional respiratory complaints and Reports dyspnea Gastrointestinal: Gastrointestinal: Reports as per HPI and Denies no additional gastrointestinal complaints Genitourinary: Genitourinary: Reports as per HPI Musculoskeletal: Musculoskeletal: Reports no additional musculoskeletal complaints and Reports as per HPI Integumentary/Breasts: Skin/Breast: Reports system reviewed and no additional complaints, except as docu Neurologic: Reports system reviewed and no additional complaints, except as documented and Reports as per HPI Psychiatric: Psychiatric: Reports no additional psychiatric complaints and Reports as per HPI Endocrine: Endocrine: Reports no additional endocrine complaints, Reports as per HPI and Denies palpitations Hematologic/Lymphatic: Hematologic/Lymphatic: Reports no additional hematologic/lymphatic complaints and Reports as per HPI Allergic/Immunologic: Allergic/Immunologic: Reports no additional allergic/immunologic complaints and Reports as per HPI [facility] Family History Pertinent family history: No pertinent family history Social History Social History Household Members: Children Household Members Other:: in law apartment attached to daughters home Housing: House Do you presently have visiting nurse or other home services: No Patient Tobacco Use Status: Current everyday Tobacco user Tobacco use type: Cigarette Cigarettes Per Day: 5 Years Smoked: 50 Smoked in Last 30 Days: Yes e-Cigarette/Vaping Use: Never Used Patient Interested in Nicotine Replacement: No Use of substances other than those prescribed or required for medical reasons: No Currently Displaying Signs/Symptoms of Drug Intoxication Withdrawal: No Have you been hit, kicked, punched, or otherwise hurt by someone within the past year? If so, by whom?: No Do you feel safe in your current relationship?: Yes Is there a partner from a previous relationship who is making you feel unsafe now?: No Are you made to feel afraid or neglected: No [employer] Healthcare Practices: Gnosticist Advance Directives: No Advance Directives Information Provided: Yes Do you have a plan to hurt others: No Plan Recently lost weight without trying: Yes How much weight loss: 2-13 pounds Eating poorly because of decreased appetite: Yes Nutrition screen score: 4 Nutrition Risks: Poor intake 0-25% >4 days Patient : No : No Poor oral hygiene: No Meds Allergies Allergy/AdvReac Type Severity Reaction Status Date / Time celecoxib (From Celebrex) Allergy Palpitation Verified 11/27/24 14:21 s Active Medications: Current Medications Acetaminophen (Acetaminophen 325 Mg Tablet) 650 mg PO Q6H PRN PRN Reason: Pain, Mild 1-3,fever,headache Last Admin: 11/27/24 22:22 Dose: 650 mg Al Hydroxide/Mg Hydroxide (Magnesium Hydrox/Alum Hydrox 30 Ml Oral.Susp) 30 ml PO Q4H PRN PRN Reason: Heartburn Azithromycin (Azithromycin 250 Mg Tablet) 250 mg PO DAILY [facility]ITH Stop: 12/03/24 08:59 Benzonatate (Benzonatate 100 Mg Capsule) 200 mg PO TID PRN PRN Reason: Cough Last Admin: 11/27/24 22:22 Dose: 200 mg Calcium Carbonate (Calcium Carbonate 750 Mg Tab.Chew) 750 mg PO Q4H PRN PRN Reason: Heartburn Ceftriaxone Sodium (Ceftriaxone Sodium 1 Gm Vial) 1 gm IVPUSH Q24H [facility] Enoxaparin Sodium (Enoxaparin Sodium 40 Mg/0.4 Ml Syringe) 40 mg SUBCUT Q24H [facility] Last Admin: 11/27/24 17:10 Dose: 40 mg Loratadine (Loratadine 10 Mg Tablet) 10 mg PO DAILY PRN PRN Reason: Allergy Symptoms Magnesium Hydroxide (Milk Of Magnesia 30 Ml Oral.Susp) 30 ml PO DAILY PRN PRN Reason: Constipation Melatonin (Melatonin 3 Mg Tablet) 6 mg PO BEDTIME PRN PRN Reason: Insomnia Last Admin: 11/27/24 22:22 Dose: 6 mg Ondansetron HCl (Ondansetron Hcl 4 Mg/2 Ml Vial) 4 mg IVPUSH Q8H PRN PRN Reason: Nausea and Vomiting Polyethylene Glycol (Polyethylene Glycol 3350 17 Gm Powd.Pack) 17 gm PO DAILY PRN PRN Reason: Constipation Sodium Chloride (0.9 % Sodium Chloride Flush 3 Ml Syringe) 3 ml IVFLUSH QSHIFT [facility] Last Admin: 11/27/24 22:23 Dose: 3 ml Home Medications ?Medication ?Instructions ?Recorded ?Confirmed ?Last Taken ?Type acetaminophen 325 mg tablet 650 mg PO Q4H PRN Pain 11/27/24 Unknown History ibuprofen 200 mg tablet (Advil) 400 mg PO Q6H PRN Pain 11/27/24 11/27/24 Unknown History loratadine 10 mg tablet (Claritin) 10 mg PO DAILY PRN Allergy Symptoms 11/27/24 11/27/24 Unknown History Physical Exam 2 Vital Signs: Vital Signs: Last Vital Signs Temp 98.1 F 11/28/24 07:12 Pulse 117 H 11/28/24 07:12 Resp 18 11/28/24 07:12 BP 103/54 L 11/28/24 07:12 Pulse Ox 96 11/28/24 07:12 O2 Del Method Nasal Cannula 11/28/24 07:12 O2 Flow Rate 3 11/28/24 07:12 BMI result Body Mass Index 23.2 Const: General: comfortable and no acute distress O rientation/consciousness: patient oriented x3 HEENT: Other: Unremarkable Head: Yes normal to inspection Neck: Neck: Yes normal visual inspection Chest: Chest palpation & inspection: normal inspection of the chest Resp: Auscultation: crackles Cardio: Palpation: normal PMI Heart sounds: S1 normal heart sound present, S2 normal heart sound present, no gallops, Murmur heart sound present systolic III/ and at the right sternal border and no rubs GI: Palpation (GI): Soft to palpation Back/Spine/Pelvis: Other: unremarkable Skin: General skin exam: no rashes or lesions noted Neuro: General: patient oriented x3 Extrem: General: Yes normal to inspection Psych: Mental Status: mental status grossly normal Objective Labs and Meds 11/27/24 14:47 11/28/24 06:19 Lab results: Laboratory Results - last 24 hr 11/27/24 11/27/24 11/27/24 14:47 14:55 15:10 WBC 15.2 H RBC 3.65 L Hgb 10.4 L Hct 32.4 L MCV 88.8 MCH 28.5 MCHC 32.1 RDW 13.7 Plt Count 271 MPV 8.8 L Immature Gran % (Auto) Cancelled Neut % (Auto) Cancelled Lymph % (Auto) Cancelled [place] % (Auto) Cancelled Eos % (Auto) Cancelled Baso % (Auto) Cancelled Lymph # (Auto) Cancelled [place] # (Auto) Cancelled Eos # (Auto) Cancelled Baso # (Auto) Cancelled Abs Immat Gran (auto) Cancelled Absolute Neuts (auto) Cancelled Absolute Nucleated RBC 0.000 Nucleated RBC % (auto) 0.0 Neutrophils % (Manual) 66 Band Neutrophils % 21 H Lymphocytes % (Manual) 2 L Monocytes % (Manual) 11 Abs Neuts (Manual) 13.2 H Lymphocytes # (Manual) 0.3 L Monocytes # (Manual) 1.7 H Dohle Bodies PRESENT Platelet Estimate NORMAL Plt Morphology Comment NORMAL RBC Morphology NOTED Polychromasia 1+ (0-2) PT 13.1 H INR 1.1 VBG pH 7.40 VBG pCO2 58 VBG pO2 50 VBG HCO3 36 H VBG O2 Saturation 71.0 VBG Base Excess 10.0 Sodium 139 Potassium 4.4 Chloride 99 Carbon Dioxide 31 H Anion Gap 13 BUN 48 H Creatinine 0.66 Estim Creat Clear Calc 52.8 Estimated GFR > 60 Random Glucose 156 H Lactic Acid 1.5 Calcium 9.5 Total Bilirubin 0.2 AST 72 H ALT 33 H Alkaline Phosphatase 80 Troponin I High Sens 41.2 H B-Natriuretic Peptide 303 H Total Protein 6.5 Albumin 3.4 L Urine Color Yellow Urine Appearance Clear Urine pH 6.0 Ur Specific [place] 1.020 Urine Protein Trace Urine Glucose (UA) Negative Urine Ketones Negative Urine Blood Trace Urine Nitrite Negative Ur Leukocyte Esterase Small (1+) H Urine RBC 3-5 H Urine WBC 6-10 H Ur Squamous Epith Cells 3-5 Urine Bacteria None Seen Hyaline Casts >20 11/28/24 06:19 WBC RBC Hgb Hct MCV MCH MCHC RDW Plt Count MPV Immature Gran % (Auto) Neut % (Auto) Lymph % (Auto) [place] % (Auto) Eos % (Auto) Baso % (Auto) Lymph # (Auto) [place] # (Auto) Eos # (Auto) Baso # (Auto) Abs Immat Gran (auto) Absolute Neuts (auto) Absolute Nucleated RBC Nucleated RBC % (auto) Neutrophils % (Manual) Band Neutrophils % Lymphocytes % (Manual) Monocytes % (Manual) Abs Neuts (Manual) Lymphocytes # (Manual) Monocytes # (Manual) Dohle Bodies Platelet Estimate Plt Morphology Comment RBC Morphology Polychromasia PT INR VBG pH VBG pCO2 VBG pO2 VBG HCO3 VBG O2 Saturation VBG Base Excess Sodium 142 Potassium 4.3 Chloride 106 Carbon Dioxide 29 Anion Gap 11 L BUN 46 H Creatinine 0.52 Estim Creat Clear Calc 67.0 Estimated GFR > 60 Random Glucose 122 H Lactic Acid Calcium 8.4 D Total Bilirubin 0.1 AST 81 H ALT 41 H Alkaline Phosphatase 73 Troponin I High Sens B-Natriuretic Peptide Total Protein 5.3 L Albumin 2.8 L Urine Color Urine Appearance Urine pH Ur Specific [place] Urine Protein Urine Glucose (UA) Urine Ketones Urine Blood Urine Nitrite Ur Leukocyte Esterase Urine RBC Urine WBC Ur Squamous Epith Cells Urine Bacteria Hyaline Casts ECG Interpretation: EKG shows sinus tachycardia at 141/Min; minimal criteria for LVH; normal [place] and corrected QT. Imaging Radiologist's impression: Impressions Chest X-Ray 11/27/24 13:59 IMPRESSION: 1. Pulmonary hyperaeration. 2. Patchy airspace disease mid and lower left lung, suspicious for pneumonia in the appropriate clinical setting. Electronically signed by: Martinez Meyer MD 11/27/2024 03:13 PM EDT Assessment and Plan (1) Non-rheumatic aortic stenosis: Status: Acute Plan By clinical exam, she has aortic stenosis. On the bedside echocardiogram and review of limited images, seems like severe aortic stenosis. Once the echocardiogram is completed, we will review. We discussed at length about pathophysiology of aortic stenosis, treatment options, clinical course extra. At the current time, pneumonia seems to be the main issue. Do not think she is having any active heart failure but can use diuretics if necessary prn. Otherwise, once the pneumonias fully treated, we will look into evaluation of aortic stenosis which will involve a diagnostic catheterization and TAVR assessment. Discussed with patient as well as daughter. Used iPad distribution operations manager. Procedures Date of Service Date of Service: 11/28/24
[2024-11-28] MEDS: 0.9 % Sodium Chloride Flush 3 ML SYRINGE IVFLUSH ×3 (09:54→20:32)
--- NOTE | 2024-11-28 10:58 | P.PNIM_ITS ---
Subjective Subjective Date of Service: 11/29/24 Interval History: f/u on shortness of breath due to pneumonia and severe aortic stenosis interval history: feeling better, seen with daughter and other relatives at bedsides Review of Systems Gen: no fever Resp: + sob, + cough CV: no chest, +THOMSON, no leg edema GI: No n/v, no abd pain Neuro: No confusion Physical Exam 2 Vital Signs: Vital Signs: Last Vital Signs Temp 98.1 F 11/28/24 07:12 Pulse 117 H 11/28/24 07:12 Resp 18 11/28/24 07:12 BP 103/54 L 11/28/24 07:12 Pulse Ox 96 11/28/24 07:12 O2 Del Method Nasal Cannula 11/28/24 07:12 O2 Flow Rate 3 11/28/24 07:12 BMI result Body Mass Index 23.2 Const: Other: General: AO X 3, no acute distress Resp: CTA bilateral CVS: S1,S2,RRR GI: +BS, NT, no distention Skin: No rash Neuro: motor grossly intact Psych: appropriate affect Objective Data Active Medications Acetaminophen (Acetaminophen 325 Mg Tablet) 650 mg PO Q6H PRN PRN Reason: Pain, Mild 1-3,fever,headache Last Admin: 11/27/24 22:22 Dose: 650 mg Documented By: OLIVIA Al Hydroxide/Mg Hydroxide (Magnesium Hydrox/Alum Hydrox 30 Ml Oral.Susp) 30 ml PO Q4H PRN PRN Reason: Heartburn Azithromycin (Azithromycin 250 Mg Tablet) 250 mg PO DAILY EDITH Stop: 12/03/24 08:59 Benzonatate (Benzonatate 100 Mg Capsule) 200 mg PO TID PRN PRN Reason: Cough Last Admin: 11/28/24 09:53 Dose: 200 mg Documented By: DIXIE Calcium Carbonate (Calcium Carbonate 750 Mg Tab.Chew) 750 mg PO Q4H PRN PRN Reason: Heartburn Ceftriaxone Sodium (Ceftriaxone Sodium 1 Gm Vial) 1 gm IVPUSH Q24H EDITH Enoxaparin Sodium (Enoxaparin Sodium 40 Mg/0.4 Ml Syringe) 40 mg SUBCUT Q24H EDITH Last Admin: 11/27/24 17:10 Dose: 40 mg Documented By: TETE Loratadine (Loratadine 10 Mg Tablet) 10 mg PO DAILY PRN PRN Reason: Allergy Symptoms Magnesium Hydroxide (Milk Of Magnesia 30 Ml Oral.Susp) 30 ml PO DAILY PRN PRN Reason: Constipation Melatonin (Melatonin 3 Mg Tablet) 6 mg PO BEDTIME PRN PRN Reason: Insomnia Last Admin: 11/27/24 22:22 Dose: 6 mg Documented By: OLIVIA Ondansetron HCl (Ondansetron Hcl 4 Mg/2 Ml Vial) 4 mg IVPUSH Q8H PRN PRN Reason: Nausea and Vomiting Polyethylene Glycol (Polyethylene Glycol 3350 17 Gm Powd.Pack) 17 gm PO DAILY PRN PRN Reason: Constipation Sodium Chloride (0.9 % Sodium Chloride Flush 3 Ml Syringe) 3 ml IVFLUSH QSHIFT EDITH Last Admin: 11/28/24 09:54 Dose: 3 ml Documented By: PHANLYM Labs 11/28/24 11:19 11/28/24 06:19 Labs: Laboratory Results - last 24 hr 11/27/24 11/27/24 11/27/24 14:47 14:55 15:10 MCV 88.8 MCH 28.5 MCHC 32.1 RDW 13.7 Plt Count 271 MPV 8.8 L Immature Gran % (Auto) Cancelled Neut % (Auto) Cancelled Lymph % (Auto) Cancelled [place] % (Auto) Cancelled Eos % (Auto) Cancelled Baso % (Auto) Cancelled Lymph # (Auto) Cancelled [place] # (Auto) Cancelled Eos # (Auto) Cancelled Baso # (Auto) Cancelled Abs Immat Gran (auto) Cancelled Absolute Neuts (auto) Cancelled Absolute Nucleated RBC 0.000 Nucleated RBC % (auto) 0.0 Neutrophils % (Manual) 66 Band Neutrophils % 21 H Lymphocytes % (Manual) 2 L Monocytes % (Manual) 11 Abs Neuts (Manual) 13.2 H Lymphocytes # (Manual) 0.3 L Monocytes # (Manual) 1.7 H Dohle Bodies PRESENT Platelet Estimate NORMAL Plt Morphology Comment NORMAL RBC Morphology NOTED Polychromasia 1+ (0-2) PT 13.1 H INR 1.1 VBG pH 7.40 VBG pCO2 58 VBG pO2 50 VBG HCO3 36 H VBG O2 Saturation 71.0 VBG Base Excess 10.0 Anion Gap 13 Estim Creat Clear Calc 52.8 Estimated GFR > 60 Random Glucose 156 H Lactic Acid 1.5 Calcium 9.5 Total Bilirubin 0.2 AST 72 H ALT 33 H Alkaline Phosphatase 80 Troponin I High Sens 41.2 H B-Natriuretic Peptide 303 H Total Protein 6.5 Albumin 3.4 L Urine Color Yellow Urine Appearance Clear Urine pH 6.0 Ur Specific [place] 1.020 Urine Protein Trace Urine Glucose (UA) Negative Urine Ketones Negative Urine Blood Trace Urine Nitrite Negative Ur Leukocyte Esterase Small (1+) H Urine RBC 3-5 H Urine WBC 6-10 H Ur Squamous Epith Cells 3-5 Urine Bacteria None Seen Hyaline Casts >20 11/28/24 06:19 MCV MCH MCHC RDW Plt Count MPV Immature Gran % (Auto) Neut % (Auto) Lymph % (Auto) [place] % (Auto) Eos % (Auto) Baso % (Auto) Lymph # (Auto) [place] # (Auto) Eos # (Auto) Baso # (Auto) Abs Immat Gran (auto) Absolute Neuts (auto) Absolute Nucleated RBC Nucleated RBC % (auto) Neutrophils % (Manual) Band Neutrophils % Lymphocytes % (Manual) Monocytes % (Manual) Abs Neuts (Manual) Lymphocytes # (Manual) Monocytes # (Manual) Dohle Bodies Platelet Estimate Plt Morphology Comment RBC Morphology Polychromasia PT INR VBG pH VBG pCO2 VBG pO2 VBG HCO3 VBG O2 Saturation VBG Base Excess Anion Gap 11 L Estim Creat Clear Calc 67.0 Estimated GFR > 60 Random Glucose 122 H Lactic Acid Calcium 8.4 D Total Bilirubin 0.1 AST 81 H ALT 41 H Alkaline Phosphatase 73 Troponin I High Sens B-Natriuretic Peptide Total Protein 5.3 L Albumin 2.8 L Urine Color Urine Appearance Urine pH Ur Specific [place] Urine Protein Urine Glucose (UA) Urine Ketones Urine Blood Urine Nitrite Ur Leukocyte Esterase Urine RBC Urine WBC Ur Squamous Epith Cells Urine Bacteria Hyaline Casts Microbiology Microbiology Results: Microbiology 11/27/24 15:50 Urine Culture - Final Urine clean catch - Clean Catch Midstream Assessment and Plan (1) Non-rheumatic aortic stenosis: Status: Acute (2) Sepsis: Status: Acute Plan 84 year old female with no listed chronic medicaal conditions here with sob, cough with sputum production and found to haveUTI, PNA and sepsis, and new systolic murmur Sepsis d/t PNA causing acute hypoxic respiratory failure, improving Continue Ceftriaxone, add Azithrom, started 11/27 follow cultures O2 to keep sat 94 to 96 % UTI Ceftriaxone as above and follow culture Severe , clinically and confirmed on echocardiogram seen by cardiology will need further testing with cardiac cath and possible TAVR Elevated LFTs, likely from sepsis', slightly higher today US, and continue following DVT prophylaxis: levenox Full code need for inpt: Sepsis, PNA, and UTI needing IV Abx and work up for severe newly diagnosed aortic stenosis Quality Stroke Does the patient have a stroke diagnosis?: No VTE Prior VTE?: No VTE Risk Level:: Medical - moderate - high VTE Device Contraindication: Treatment Not Indicated VTE Drug Contraindication: N/A - Med Ordered
[2024-11-28 11:26] LABS: Hematocrit 24.8 % (37.0-47.0); Hemoglobin 8.2 g/dl (12.0-16.0); Mean Corpuscular HGB Conc 33.1 g/dl (31.0-35.0); Mean Corpuscular Hemoglobin 29.2 pg (27.0-33.0); Mean Corpuscular Volume 88.3 fL (80.0-98.0); NRBC Abs Auto 0.000 X10*3/uL (0.0-0.012); NRBC Pct Auto 0.0 /100WBC (0.0-0.2); Platelet Count 235 X10*3/uL (160-400); Red Blood Count 2.81 X10*6/uL (4.20-5.50); White Blood Count 14.1 X10*3/uL (4.8-10.8)
[2024-11-28 12:00] VITALS: BP 100/57; PULSE 119; RESP 18; TEMP 36.8; O2SAT 94
[2024-11-28 16:00] VITALS: BP 94/46; PULSE 121; RESP 19; TEMP 36.5; O2SAT 94
--- NOTE | 2024-11-28 16:32 | HO.WOUND ---
Wound Consult: Initial 84yr old? female admitted to [facility] on 11/27/24 - See progress notes and H&P for detailed history.? Wound consult placed for Left ear abrasion.? Patient agreeable to assessment and photo documentation.? Patient report wound started from a self inflicted scratch to her ear a few days ago. Site does not appear infected some mild erythema noted, no induration no fluctuance noted - denies pain to the site. partial thickness tissue loss clean wound bed - recommen moist wound healing with vaseine and cover dressing. Recommendations: 1. Turn and Reposition every 2 hours and as needed for patient comfort.? Use pillows or wedges to support off loading positions. 2. Off Load all bony prominences with use of pillows and heel boots if needed.? Apply Preventative foams where needed. ? 3. Monitor for incontinence and moisture control, use barrier creams when needed for prevention and treatment. 4. Provide adequate and supplemental nutrition.? 5. Order low air loss mattress. 6. When applicable maintain blood glucose levels per Providers order. Left Ear - Cleanse with saline moist gauze, pat dry. Apply Vaseline to wound bed, cover with bandaid or dry dressing. Change every 1-2 days and PRN. Re-consult wound care Nurse for wound deterioration or wound changes.
[2024-11-28 19:47] VITALS: BP 118/58; PULSE 120; RESP 18; TEMP 36.6; O2SAT 95
[2024-11-28 23:19] VITALS: BP 115/61; PULSE 109; RESP 18; TEMP 36.1; O2SAT 93
--- NOTE | 2024-11-29 02:07 | PC.NURSE ---
Pt with weak, productive cough. Patient given PRN Tessalon for cough and mouth suctioned to facilitate removal of sputum. Patient tolerated well. On 2L OXymask for mouth breathing.
[2024-11-29 04:00] VITALS: BP 108/53; PULSE 115; RESP 18; TEMP 36.5; O2SAT 94
[2024-11-29 07:38] VITALS: BP 110/81; PULSE 117; RESP 20; TEMP 36.4; O2SAT 96
[2024-11-29] MEDS: 0.9 % Sodium Chloride Flush 3 ML SYRINGE IVFLUSH ×2 (09:38→17:56)
--- NOTE | 2024-11-29 09:58 | HO.PM.IMPN ---
Subjective Subjective Date of Service: 11/29/24 Interval History: feels better overall but still on O2 supplement Physical Exam Vital Signs: Vital Signs: Last Vital Signs Temp 97.6 F 11/29/24 07:38 Pulse 117 H 11/29/24 07:38 Resp 20 11/29/24 07:38 BP 110/81 11/29/24 07:38 Pulse Ox 96 11/29/24 07:38 O2 Del Method Nasal Cannula 11/29/24 07:38 O2 Flow Rate 2 11/29/24 07:38 BMI result Body Mass Index 23.2 Const: Other: General: AO X 3, no acute distress Resp: CTA bilateral CVS: S1,S2,RRR GI: +BS, NT, no distention Skin: No rash Neuro: motor grossly intact Psych: appropriate affect Objective Data Active Medications Acetaminophen (Acetaminophen 325 Mg Tablet) 650 mg PO Q6H PRN PRN Reason: Pain, Mild 1-3,fever,headache Last Admin: 11/28/24 20:31 Dose: 650 mg Documented By: OLIVIA Al Hydroxide/Mg Hydroxide (Magnesium Hydrox/Alum Hydrox 30 Ml Oral.Susp) 30 ml PO Q4H PRN PRN Reason: Heartburn Azithromycin (Azithromycin 250 Mg Tablet) 250 mg PO DAILY [facility] Stop: 12/03/24 08:59 Last Admin: 11/29/24 09:37 Dose: 250 mg Documented By: DIXIE Benzonatate (Benzonatate 100 Mg Capsule) 200 mg PO TID PRN PRN Reason: Cough Last Admin: 11/29/24 09:37 Dose: 200 mg Documented By: DIXIE Calcium Carbonate (Calcium Carbonate 750 Mg Tab.Chew) 750 mg PO Q4H PRN PRN Reason: Heartburn Ceftriaxone Sodium (Ceftriaxone Sodium 1 Gm Vial) 1 gm IVPUSH Q24H [facility] Last Admin: 11/28/24 14:57 Dose: 1 gm Documented By: DIXIE Enoxaparin Sodium (Enoxaparin Sodium 40 Mg/0.4 Ml Syringe) 40 mg SUBCUT Q24H [facility] Last Admin: 11/28/24 18:08 Dose: 40 mg Documented By: DIXIE Loratadine (Loratadine 10 Mg Tablet) 10 mg PO DAILY PRN PRN Reason: Allergy Symptoms Magnesium Hydroxide (Milk Of Magnesia 30 Ml Oral.Susp) 30 ml PO DAILY PRN PRN Reason: Constipation Melatonin (Melatonin 3 Mg Tablet) 6 mg PO BEDTIME PRN PRN Reason: Insomnia Last Admin: 11/28/24 20:31 Dose: 6 mg Documented By: OLIVIA Ondansetron HCl (Ondansetron Hcl 4 Mg/2 Ml Vial) 4 mg IVPUSH Q8H PRN PRN Reason: Nausea and Vomiting Polyethylene Glycol (Polyethylene Glycol 3350 17 Gm Powd.Pack) 17 gm PO DAILY PRN PRN Reason: Constipation Sodium Chloride (0.9 % Sodium Chloride Flush 3 Ml Syringe) 3 ml IVFLUSH QSHIFT EDITH Last Admin: 11/29/24 09:38 Dose: 3 ml Documented By: INDYNLYM Labs 12/01/24 06:06 12/03/24 09:11 Labs: Laboratory Results - last 24 hr 11/28/24 11:19 MCV 88.3 MCH 29.2 MCHC 33.1 RDW 13.6 Plt Count 235 MPV 9.0 L Absolute Nucleated RBC 0.000 Nucleated RBC % (auto) 0.0 Microbiology Microbiology Results: Microbiology 11/27/24 14:47 Blood Culture - Preliminary Blood - Venous No growth after 24 hours. 11/27/24 14:47 Blood Culture - Preliminary Blood - Venous No growth after 24 hours. 11/27/24 15:50 Urine Culture - Final Urine clean catch - Clean Catch Midstream Assessment and Plan (1) Non-rheumatic aortic stenosis: Status: Acute (2) Sepsis: Status: Acute Plan 84 year old female with no listed chronic medicaal conditions here with sob, cough with sputum production and found to haveUTI, PNA and sepsis, and new systolic murmur Sepsis d/t PNA causing acute hypoxic respiratory failure, improving Continue Ceftriaxone, Azithrom, started 11/27 follow cultures O2 to keep sat 94 to 96 % UTI Ceftriaxone as above and follow culture Severe , clinically and confirmed on echocardiogram seen by cardiology will need further testing with cardiac cath and possible TAVR Elevated LFTs, likely from sepsis', slightly higher today US, and continue following DVT prophylaxis: levenox Full code need for inpt: Sepsis, PNA, and UTI needing IV Abx and work up for severe newly diagnosed aortic stenosis Quality Stroke Does the patient have a stroke diagnosis?: No VTE Prior VTE?: No VTE Risk Level:: Medical - moderate - high VTE Device Contraindication: Treatment Not Indicated VTE Drug Contraindication: N/A - Med Ordered
[2024-11-29 10:31] LABS: Hematocrit 25.1 % (37.0-47.0); Hemoglobin 8.0 g/dl (12.0-16.0); Mean Corpuscular HGB Conc 31.9 g/dl (31.0-35.0); Mean Corpuscular Hemoglobin 28.6 pg (27.0-33.0); Mean Corpuscular Volume 89.6 fL (80.0-98.0); NRBC Abs Auto 0.030 X10*3/uL (0.0-0.012); NRBC Pct Auto 0.3 /100WBC (0.0-0.2); Platelet Count 256 X10*3/uL (160-400); Red Blood Count 2.80 X10*6/uL (4.20-5.50); White Blood Count 11.8 X10*3/uL (4.8-10.8)
[2024-11-29 10:41] LABS: Anion Gap 13 (12-20); Blood Urea Nitrogen 22 mg/dL (9-16); Calcium 9.2 mg/dL (8.4-10.2); Carbon Dioxide 34 mmol/L (22-29); Chloride 102 mmol/L (96-108); Creatinine Clr Calc Pharmacy 61.1; Estimated Glomerular Filt Rate > 60; Potassium 4.5 mmol/L (3.3-5.1); Sodium 144 mmol/L (135-145)
--- NOTE | 2024-11-29 11:09 | MHC.CM.PN ---
Per ROUNDS discussion, Patient is not yet medically cleared for dc (Sepsis/IV ABX); home is the goal and CM will continue to follow.
[2024-11-29 12:00] VITALS: BP 118/57; PULSE 117; RESP 20; TEMP 36.4; O2SAT 96
[2024-11-29 15:49] VITALS: BP 115/56; PULSE 116; RESP 20; TEMP 36.8; O2SAT 92
[2024-11-29 19:31] VITALS: BP 94/51; PULSE 119; RESP 16; TEMP 36.4; O2SAT 95
[2024-11-29 23:42] VITALS: BP 116/56; PULSE 122; RESP 18; TEMP 36.4; O2SAT 92
[2024-11-30 03:35] VITALS: BP 115/59; PULSE 118; RESP 16; TEMP 36.4; O2SAT 98
[2024-11-30 07:16] VITALS: BP 115/55; PULSE 110; RESP 20; TEMP 36.3; O2SAT 100
[2024-11-30] MEDS: 0.9 % Sodium Chloride Flush 3 ML SYRINGE IVFLUSH ×2 (09:10→15:33)
[2024-11-30 11:10] VITALS: BP 103/55; PULSE 106; RESP 20; TEMP 36.2; O2SAT 94
--- NOTE | 2024-11-30 11:43 | P.PNIM_ITS ---
Subjective Subjective Date of Service: 11/30/24 Interval History: seen and evaluated this morning feels better overall difficult to hear denies fever or chills on 2L O2 supplement tolerating PO Review of Systems Review of Systems: Yes all other systems are reviewed and are negative Physical Exam 2 Vital Signs: Vital Signs: Last Vital Signs Temp 97.1 F 11/30/24 11:10 Pulse 106 H 11/30/24 11:10 Resp 20 11/30/24 11:10 BP 103/55 L 11/30/24 11:10 Pulse Ox 94 11/30/24 11:10 O2 Del Method Nasal Cannula 11/30/24 11:10 O2 Flow Rate 2 11/30/24 11:10 BMI result Body Mass Index 23.2 Const: Other: General: AO X 3, no acute distress Resp: CTA bilateral, no wheezes , basal fine crackles CVS: S1,S2,RRR GI: +BS, NT, no distention Skin: No rash Neuro: motor grossly intact Psych: appropriate affect Objective Data Active Medications Acetaminophen (Acetaminophen 325 Mg Tablet) 650 mg PO Q6H PRN PRN Reason: Pain, Mild 1-3,fever,headache Last Admin: 11/28/24 20:31 Dose: 650 mg Documented By: OLIVIA Al Hydroxide/Mg Hydroxide (Magnesium Hydrox/Alum Hydrox 30 Ml Oral.Susp) 30 ml PO Q4H PRN PRN Reason: Heartburn Azithromycin (Azithromycin 250 Mg Tablet) 250 mg PO DAILY [facility] Stop: 12/03/24 08:59 Last Admin: 11/30/24 09:10 Dose: 250 mg Documented By: AMAIRANICIMARY Benzonatate (Benzonatate 100 Mg Capsule) 200 mg PO TID PRN PRN Reason: Cough Last Admin: 11/29/24 17:53 Dose: 200 mg Documented By: DIXIE Calcium Carbonate (Calcium Carbonate 750 Mg Tab.Chew) 750 mg PO Q4H PRN PRN Reason: Heartburn Ceftriaxone Sodium (Ceftriaxone Sodium 1 Gm Vial) 1 gm IVPUSH Q24H [facility] Last Admin: 11/29/24 13:35 Dose: 1 gm Documented By: DIXIE Enoxaparin Sodium (Enoxaparin Sodium 40 Mg/0.4 Ml Syringe) 40 mg SUBCUT Q24H [facility] Last Admin: 11/29/24 17:56 Dose: 40 mg Documented By: DIXIE Loratadine (Loratadine 10 Mg Tablet) 10 mg PO DAILY PRN PRN Reason: Allergy Symptoms Magnesium Hydroxide (Milk Of Magnesia 30 Ml Oral.Susp) 30 ml PO DAILY PRN PRN Reason: Constipation Melatonin (Melatonin 3 Mg Tablet) 6 mg PO BEDTIME PRN PRN Reason: Insomnia Last Admin: 11/28/24 20:31 Dose: 6 mg Documented By: OLIVIA Ondansetron HCl (Ondansetron Hcl 4 Mg/2 Ml Vial) 4 mg IVPUSH Q8H PRN PRN Reason: Nausea and Vomiting Polyethylene Glycol (Polyethylene Glycol 3350 17 Gm Powd.Pack) 17 gm PO DAILY PRN PRN Reason: Constipation Last Admin: 11/29/24 13:34 Dose: 17 gm Documented By: DIXIE Sodium Chloride (0.9 % Sodium Chloride Flush 3 Ml Syringe) 3 ml IVFLUSH QSHIFT [facility] Last Admin: 11/30/24 09:10 Dose: 3 ml Documented By: RICCIAV Labs 11/29/24 10:17 11/29/24 10:17 Microbiology Microbiology Results: Microbiology 11/27/24 14:47 Blood Culture - Preliminary Blood - Venous No growth after 48 hours. 11/27/24 14:47 Blood Culture - Preliminary Blood - Venous No growth after 48 hours. Assessment and Plan (1) Sepsis: Status: Acute (2) Pneumonia: Status: Acute (3) Acute respiratory failure with hypoxia: Status: Acute Plan 84 year old female with no listed chronic medicaal conditions here with sob, cough with sputum production and found to haveUTI, PNA and sepsis, and new systolic murmur Sepsis d/t PNA causing acute hypoxic respiratory failure improving Continue Ceftriaxone and Azithrom, started 11/27 negative cultures O2 to keep sat 94 to 96 % PT eval UTI less likely, mixed culture on Ceftriaxone as above and follow culture Severe , clinically and confirmed on echocardiogram seen by cardiology will need further testing with cardiac cath and possible TAVR Elevated LFTs, likely from sepsis', slightly higher today US, and continue following DVT prophylaxis: lovenox Full code need for inpt: PNA with hypoxia needing IV Abx and weaning off O2 pending physical therapy eval Quality Stroke Does the patient have a stroke diagnosis?: No VTE Prior VTE?: No VTE Risk Level:: Medical - moderate - high VTE Device Contraindication: Treatment Not Indicated VTE Drug Contraindication: N/A - Med Ordered
[2024-11-30 16:00] VITALS: BP 115/53; PULSE 114; RESP 20; TEMP 36.4; O2SAT 94
[2024-11-30 19:45] VITALS: BP 112/55; PULSE 118; RESP 16; TEMP 36.3; O2SAT 95
[2024-11-30 23:53] VITALS: BP 110/52; PULSE 114; RESP 16; TEMP 36.4; O2SAT 98
[2024-12-01] VITALS (9 sets, daily range): BP systolic 96–131; BP diastolic 51–68; PULSE 79–123; RESP 14–20; TEMP 36.1–37.2; O2SAT 20–99
[2024-12-01 07:05] LABS: Anion Gap 13 (12-20); Blood Urea Nitrogen 15 mg/dL (9-16); Calcium 8.8 mg/dL (8.4-10.2); Carbon Dioxide 34 mmol/L (22-29); Chloride 98 mmol/L (96-108); Creatinine Clr Calc Pharmacy 81.1; Estimated Glomerular Filt Rate > 60; Potassium 4.4 mmol/L (3.3-5.1); Sodium 141 mmol/L (135-145)
[2024-12-01 07:11] LABS: Hematocrit 26.1 % (37.0-47.0); Hemoglobin 8.2 g/dl (12.0-16.0); Mean Corpuscular HGB Conc 31.4 g/dl (31.0-35.0); Mean Corpuscular Hemoglobin 28.0 pg (27.0-33.0); Mean Corpuscular Volume 89.1 fL (80.0-98.0); NRBC Abs Auto 0.040 X10*3/uL (0.0-0.012); NRBC Pct Auto 0.3 /100WBC (0.0-0.2); Platelet Count 255 X10*3/uL (160-400); Red Blood Count 2.93 X10*6/uL (4.20-5.50)
[2024-12-01 07:15] LABS: WBC ABN SCTR FOR CBC 1
[2024-12-01 07:16] LABS: White Blood Count 13.0 X10*3/uL (4.8-10.8)
[2024-12-01] MEDS: 0.9 % Sodium Chloride Flush 3 ML SYRINGE IVFLUSH ×2 (07:43→16:11)
[2024-12-01 07:51] LABS: Band Neutrophils Percent 1 % (3-5); Eosinophils Absolute Manual 0.1 X10*3/uL (0.0-0.4); Eosinophils Percent Manual 1 % (0-4); Lymphocytes Absolute Manual 1.2 X10*3/uL (1.2-4.9); Lymphocytes Percent Manual 9 % (20-40); Metamyelocytes Absolute 0.3 X10*3/uL; Metamyelocytes Percent 2 %; Monocytes Absolute Manual 0.8 X10*3/uL (0.1-1.2); Monocytes Percent Manual 6 % (2-11); Myelocytes Absolute 0.3 X10*/uL; Myelocytes Percent 2 %; Neutrophils Absolute Manual 10.4 X10*3/uL (2.0-8.3); Neutrophils Percent Manual 79 % (45-73); RBC Morphology NOTED
[2024-12-01] MEDS: Milk of Magnesia 30 ML ORAL.SUSP PO (07:51)
[2024-12-01 07:52] LABS: Hypochromasia 1+ (5-14) /OIF; Large Platelet PRESENT; Polychromasia 1+ (0-2) /OIF
--- NOTE | 2024-12-01 10:22 | P.PNCA_ITS ---
Subjective Subjective Date of Service: 12/01/24 Interval history: She states that she is feeling better. Improved compared to admission. Review of Systems Review of Systems Yes all other systems are reviewed and are negative Constitutional: Reports as per HPI and Reports no additional constitutional complaints Eyes: Reports as per HPI and Denies no additional eye complaints Denies system reviewed and no additional complaints, except as documented and Reports as per HPI Cardiovascular: Reports as per HPI, Reports no additional cardiovascular complaints, Denies acrocyanosis, Denies cool extremities, Denies chest pain, Denies leg edema, Denies lightheadedness, Denies palpitations and Reports dyspnea Respiratory: Reports as per HPI, Denies no additional respiratory complaints and Reports dyspnea Gastrointestinal: Reports as per HPI and Denies no additional gastrointestinal complaints Musculoskeletal: Reports no additional musculoskeletal complaints and Reports as per HPI Skin/Breast: Reports system reviewed and no additional complaints, except as docu Reports system reviewed and no additional complaints, except as documented and Reports as per HPI Psychiatric: Reports no additional psychiatric complaints and Reports as per HPI Endocrine: Reports no additional endocrine complaints, Reports as per HPI and Denies palpitations Hematologic/Lymphatic: Reports no additional hematologic/lymphatic complaints and Reports as per HPI Allergic/Immunologic: Reports no additional allergic/immunologic complaints and Reports as per HPI Physical Exam Vital Signs: Last Vital Signs Temp 97.9 F 12/01/24 06:53 Pulse 115 H 12/01/24 06:53 Resp 20 12/01/24 06:53 BP 112/68 12/01/24 06:53 Pulse Ox 98 12/01/24 06:53 O2 Del Method Oxymask 12/01/24 06:53 O2 Flow Rate 98 12/01/24 06:53 BMI result Body Mass Index 23.2 Const General: comfortable and no acute distress Orientation/consciousness: patient oriented x3 HEENT Other: Unremarkable Head: Yes normal to inspection Neck Neck: Yes normal visual inspection Chest Chest palpation & inspection: normal inspection of the chest Resp Auscultation: rhonchi Cardio Palpation: normal PMI Heart sounds: S1 normal heart sound present, S2 normal heart sound present, no gallops, Murmur heart sound present systolic III/ and at the right sternal border and no rubs GI Palpation (GI): Soft to palpation Back/Spine/Pelvis Other: unremarkable Skin General skin exam: no rashes or lesions noted Neuro General: patient oriented x3 Extrem General: Yes normal to inspection Psych Mental Status: mental status grossly normal Objective Labs and Meds 12/01/24 06:06 12/01/24 06:06 Lab results: Laboratory Results - last 24 hr 12/01/24 06:06 WBC 13.0 H RBC 2.93 L Hgb 8.2 L Hct 26.1 L MCV 89.1 MCH 28.0 MCHC 31.4 RDW 13.5 Plt Count 255 MPV 10.5 Immature Gran % (Auto) Cancelled Neut % (Auto) Cancelled Lymph % (Auto) Cancelled Gentry % (Auto) Cancelled Eos % (Auto) Cancelled Baso % (Auto) Cancelled Lymph # (Auto) Cancelled Gentry # (Auto) Cancelled Eos # (Auto) Cancelled Baso # (Auto) Cancelled Abs Immat Gran (auto) Cancelled Absolute Neuts (auto) Cancelled Absolute Nucleated RBC 0.040 H Nucleated RBC % (auto) 0.3 H Neutrophils % (Manual) 79 H Band Neutrophils % 1 L Lymphocytes % (Manual) 9 L Monocytes % (Manual) 6 Eosinophils % (Manual) 1 Metamyelocytes % 2 Myelocytes % 2 Abs Neuts (Manual) 10.4 H Lymphocytes # (Manual) 1.2 Monocytes # (Manual) 0.8 Eosinophils # (Manual) 0.1 Metamyelocytes # 0.3 Myelocytes # 0.3 Platelet Estimate NORMAL Large Platelets PRESENT Plt Morphology Comment NOTED RBC Morphology NOTED Polychromasia 1+ (0-2) Hypochromasia 1+ (5-14) Sodium 141 Potassium 4.4 Chloride 98 Carbon Dioxide 34 H Anion Gap 13 BUN 15 Creatinine 0.43 L Estim Creat Clear Calc 81.1 Estimated GFR > 60 Random Glucose 110 Calcium 8.8 Progress Note: A&P Assessment and plan (1) Non-rheumatic aortic stenosis: Status: Acute (2) Pneumonia: Status: Acute (3) Sepsis: Status: Acute Plan On echocardiogram, LVEF is 50-55%. Moderate left ventricle hypertrophy. Severe aortic stenosis. Severe mitral annular calcification. Current issue is sepsis/pneumonia causing respiratory failure. She is on IV antibiotics. According to RN, without oxygen, she desaturates into the 70s. Hence requires supplemental oxygen. Sinus tachycardia on telemetry is most likely related to the ongoing respiratory issues. Less likely she has any active congestive heart failure. But okay empiric diuretic as needed. Once the current issues are resolved, we will arrange outpatient clinic follow- up for aortic valve assessment. Time Spent With Patient Time: Total time managing care of this patient today ____ minutes. Progress Note: Quality Stroke Does the patient have a stroke diagnosis?: No Procedures Date of Service Date of Service: 12/01/24
[2024-12-01] MEDS: Furosemide 20 MG/2 ML VIAL IVPUSH ×2 (11:12→16:10)
[2024-12-01 12:18] LABS: D Dimer High Sensitivity 263 NG/ML
--- NOTE | 2024-12-01 12:29 | HO.PM.IMPN ---
Subjective Subjective Date of Service: 12/01/24 Interval History: seen and evaluated this morning feels better overall but still on O2 supplement drops to 80s and 70s on RA difficult to hear CXR showing worsening edema and effusions tolerating PO Review of Systems Review of Systems: Yes all other systems are reviewed and are negative Physical Exam Vital Signs: Vital Signs: Last Vital Signs Temp 98.9 F 12/01/24 11:18 Pulse 79 12/01/24 11:18 Resp 18 12/01/24 11:18 BP 131/60 12/01/24 11:18 Pulse Ox 98 12/01/24 11:18 O2 Del Method Room Air 12/01/24 11:18 O2 Flow Rate 2 12/01/24 11:16 BMI result Body Mass Index 23.2 Const: Other: General: AO X 3, no acute distress Resp: CTA bilateral decreased at the bases , left sided wheezes , basal fine crackles bilaterally CVS: S1,S2,RRR GI: +BS, NT, no distention Skin: No rash Neuro: motor grossly intact Psych: appropriate affect Objective Data Active Medications Acetaminophen (Acetaminophen 325 Mg Tablet) 650 mg PO Q6H PRN PRN Reason: Pain, Mild 1-3,fever,headache Last Admin: 11/30/24 13:51 Dose: 650 mg Documented By: PEDRO Al Hydroxide/Mg Hydroxide (Magnesium Hydrox/Alum Hydrox 30 Ml Oral.Susp) 30 ml PO Q4H PRN PRN Reason: Heartburn Azithromycin (Azithromycin 250 Mg Tablet) 250 mg PO DAILY [facility] Stop: 12/03/24 08:59 Last Admin: 12/01/24 07:43 Dose: 250 mg Documented By: DILIA Benzonatate (Benzonatate 100 Mg Capsule) 200 mg PO TID PRN PRN Reason: Cough Last Admin: 11/29/24 17:53 Dose: 200 mg Documented By: PHANLFIDEL Calcium Carbonate (Calcium Carbonate 750 Mg Tab.Chew) 750 mg PO Q4H PRN PRN Reason: Heartburn Ceftriaxone Sodium (Ceftriaxone Sodium 1 Gm Vial) 1 gm IVPUSH Q24H [facility] Last Admin: 11/30/24 15:33 Dose: 1 gm Documented By: RICCIAV Enoxaparin Sodium (Enoxaparin Sodium 40 Mg/0.4 Ml Syringe) 40 mg SUBCUT Q24H [facility] Last Admin: 11/30/24 15:33 Dose: 40 mg Documented By: RICCIAV Furosemide (Furosemide 20 Mg/2 Ml Vial) 20 mg IVPUSH DAILY [facility]; Protocol Last Admin: 12/01/24 11:12 Dose: 20 mg Documented By: DILIA Loratadine (Loratadine 10 Mg Tablet) 10 mg PO DAILY PRN PRN Reason: Allergy Symptoms Magnesium Hydroxide (Milk Of Magnesia 30 Ml Oral.Susp) 30 ml PO DAILY PRN PRN Reason: Constipation Last Admin: 12/01/24 07:51 Dose: 30 ml Documented By: DILIA Melatonin (Melatonin 3 Mg Tablet) 6 mg PO BEDTIME PRN PRN Reason: Insomnia Last Admin: 11/28/24 20:31 Dose: 6 mg Documented By: OLIVIA Ondansetron HCl (Ondansetron Hcl 4 Mg/2 Ml Vial) 4 mg IVPUSH Q8H PRN PRN Reason: Nausea and Vomiting Polyethylene Glycol (Polyethylene Glycol 3350 17 Gm Powd.Pack) 17 gm PO DAILY PRN PRN Reason: Constipation Last Admin: 11/29/24 13:34 Dose: 17 gm Documented By: PHANLYM Sodium Chloride (0.9 % Sodium Chloride Flush 3 Ml Syringe) [facility] Last Admin: 12/01/24 07:43 Dose: 3 ml Documented By: DILIA Labs 12/01/24 06:06 12/01/24 06:06 Labs: Laboratory Results - last 24 hr 12/01/24 12/01/24 06:06 11:56 MCV 89.1 MCH 28.0 MCHC 31.4 RDW 13.5 Plt Count 255 MPV 10.5 Immature Gran % (Auto) Cancelled Neut % (Auto) Cancelled Lymph % (Auto) Cancelled Josephine % (Auto) Cancelled Eos % (Auto) Cancelled Baso % (Auto) Cancelled Lymph # (Auto) Cancelled Josephine # (Auto) Cancelled Eos # (Auto) Cancelled Baso # (Auto) Cancelled Abs Immat Gran (auto) Cancelled Absolute Neuts (auto) Cancelled Absolute Nucleated RBC 0.040 H Nucleated RBC % (auto) 0.3 H Neutrophils % (Manual) 79 H Band Neutrophils % 1 L Lymphocytes % (Manual) 9 L Monocytes % (Manual) 6 Eosinophils % (Manual) 1 Metamyelocytes % 2 Myelocytes % 2 Abs Neuts (Manual) 10.4 H Lymphocytes # (Manual) 1.2 Monocytes # (Manual) 0.8 Eosinophils # (Manual) 0.1 Metamyelocytes # 0.3 Myelocytes # 0.3 Platelet Estimate NORMAL Large Platelets PRESENT Plt Morphology Comment NOTED RBC Morphology NOTED Polychromasia 1+ (0-2) Hypochromasia 1+ (5-14) D-Dimer High Sensitivty 263 Anion Gap 13 Estim Creat Clear Calc 81.1 Estimated GFR > 60 Random Glucose 110 Calcium 8.8 Assessment and Plan (1) Non-rheumatic aortic stenosis: Status: Acute (2) Sepsis: Status: Acute (3) Pneumonia: Status: Acute (4) Acute respiratory failure with hypoxia: Status: Acute (5) Acute diastolic (congestive) heart failure: Status: Acute Plan 84 year old female with no listed chronic medicaal conditions here with sob, cough with sputum production and found to haveUTI, PNA and sepsis, and new systolic murmur acute hypoxic respiratory failure secondary to acute diastolic CHF exacerbation Bilateral effusion and pulmonary edema on CXR 11/30 Echo showed EF 50-55% and severe and severe Mitral calcifications Start IV Lasix follow I\O Sepsis d/t PNA improving Continue Ceftriaxone and Azithrom, started 11/27 negative cultures O2 to keep sat 94 to 96 % PT eval rec SNF UTI less likely, mixed culture on Ceftriaxone as above and follow culture Severe , clinically and confirmed on echocardiogram seen by cardiology will need further testing with cardiac cath and possible TAVR Elevated LFTs, likely from sepsis', slightly higher today US, and continue following DVT prophylaxis: lovenox Full code need for inpt: PNA with hypoxia needing IV Abx and IV Lasix and weaning off O2 Quality Stroke Does the patient have a stroke diagnosis?: No VTE Prior VTE?: No VTE Risk Level:: Medical - moderate - high VTE Device Contraindication: Treatment Not Indicated VTE Drug Contraindication: N/A - Med Ordered
[2024-12-02] VITALS (11 sets, daily range): BP systolic 91–107; BP diastolic 48–59; PULSE 107–116; RESP 14–20; TEMP 36.2–36.8; O2SAT 84–96
[2024-12-02] MEDS: 0.9 % Sodium Chloride Flush 3 ML SYRINGE IVFLUSH ×4 (05:35→22:52)
[2024-12-02 07:24] LABS: B Type Natriuretic Peptide 538 pg/mL (<100)
[2024-12-02 07:41] LABS: Anion Gap 11 (12-20); Blood Urea Nitrogen 19 mg/dL (9-16); Calcium 8.9 mg/dL (8.4-10.2); Carbon Dioxide 46 mmol/L (22-29); Chloride 91 mmol/L (96-108); Creatinine Clr Calc Pharmacy 67.0; Estimated Glomerular Filt Rate > 60; Potassium 4.9 mmol/L (3.3-5.1); Sodium 143 mmol/L (135-145)
[2024-12-02] MEDS: Milk of Magnesia 30 ML ORAL.SUSP PO (08:11)
--- NOTE | 2024-12-02 10:28 | PM.PNCARD ---
Subjective Subjective Date of Service: 12/02/24 Principal diagnosis: Hypoxemia, tachycardia Interval history: Patient denies any chest pain. Remains oxygen dependent and with hypoxemia. Has diuresed about 1300 cc since yesterday. The bicarb on basic metabolic profile is elevated consistent with intravascular volume depletion. Renal function is still stable. BNP is elevated. Blood pressure is on the softer side. No lightheadedness. Review of Systems Constitutional: Reports no additional constitutional complaints Cardiovascular: Reports no additional cardiovascular complaints and Reports dyspnea Respiratory: Reports dyspnea and Reports other (Requires oxygen) Gastrointestinal: Reports no additional gastrointestinal complaints Genitourinary: Reports no additional female genitourinary complaints Musculoskeletal: Reports no additional musculoskeletal complaints Reports system reviewed and no additional complaints, except as documented Physical Exam Vital Signs: Last Vital Signs Temp 97.8 F 12/02/24 07:15 Pulse 116 H 12/02/24 07:15 Resp 16 12/02/24 07:15 BP 98/53 L 12/02/24 07:15 Pulse Ox 92 12/02/24 07:15 O2 Del Method Oxymask 12/02/24 07:15 O2 Flow Rate 2 12/02/24 07:15 BMI result Body Mass Index 23.2 Const General: cooperative and no acute distress Nutritional Appearance: thin and other (Frail) Neck Neck: Yes trachea midline, Yes supple and Yes no JVD Resp Effort & Inspection: normal respiratory effort Auscultation: diminished lung sounds (Bilateral base) Cardio Jugular venous distension: no JVD Rate: tachycardic Rhythm: regular rhythm Heart sounds: S1 normal heart sound present, no click, no gallops and Murmur heart sound present systolic late, decrescendo and crescendo GI Auscultation: normal bowel sounds Skin General skin exam: no rashes or lesions noted Neuro General: no focal motor deficits Objective Labs and Meds 12/01/24 06:06 12/02/24 06:37 Lab results: Laboratory Results - last 24 hr 12/01/24 12/02/24 11:56 06:37 Hold Purple Top SEE NOTE D-Dimer High Sensitivty 263 Sodium 143 Potassium 4.9 Chloride 91 L Carbon Dioxide 46 H* D Anion Gap 11 L BUN 19 H Creatinine 0.52 Estim Creat Clear Calc 67.0 Estimated GFR > 60 Random Glucose 106 Calcium 8.9 B-Natriuretic Peptide 538 H Progress Note: A&P Assessment and plan (1) Non-rheumatic aortic stenosis: Status: Acute Assessment and Plan: Severe/critical aortic stenosis moderate LVH with normal LV ejection fraction with bilateral pleural effusion. She came with hypoxemic respiratory failure poor appetite and failure to thrive. At this point time she does not appear to be in overt heart failure although she does have bilateral pleural effusion worsening BNP. Clinically no other symptoms. Her bicarbonate levels have gone up. At this point time I would hold off on diuretic regimen given her softer blood pressure. Will monitor clinically. Continue treat underlying respiratory issues possible pneumonia. Will eventually require TAVR evaluation if she does well from clinical perspective. Will continue monitor and follow with you. Start low-dose metoprolol 12.5 mg q.6 hours to reduce myocardial demand. (2) Acute respiratory failure with hypoxia: Status: Acute Assessment and Plan: Acute hypoxemic respiratory failure with bilateral pleural effusion. If hypoxemic does not improve consider noncontrast CT to evaluate for lung parenchyma and bilateral pleural effusion. May need thoracocentesis if she has significant pleural effusion and atelectasis. Consider incentive spirometry. Continue oxygen supplementation. Out of bed to chair. Continue treat underlying possible pneumonia. Will follow with you Time Spent With Patient Time: Total time managing care of this patient today ____ minutes. Progress Note: Quality Stroke Does the patient have a stroke diagnosis?: No Procedures Date of Service Date of Service: 12/02/24
--- NOTE | 2024-12-02 11:25 | MHC.CM.PN ---
CM met with Patient and her Daughter/HCP at bedside to discuss PT's recommendation. Patient/Daughter have declined all services (home/self care is their goal). CM will follow.
--- NOTE | 2024-12-02 11:31 | P.PNIM_ITS ---
Subjective Subjective Date of Service: 12/02/24 Interval History: feels better overall but still on O2 supplement CXR showing worsening edema and effusions tolerating PO Review of Systems Review of Systems: Yes all other systems are reviewed and are negative Physical Exam 2 Vital Signs: Vital Signs: Last Vital Signs Temp 98.3 F 12/02/24 11:16 Pulse 112 H 12/02/24 11:16 Resp 14 12/02/24 11:16 BP 98/52 L 12/02/24 11:16 Pulse Ox 91 L 12/02/24 11:16 O2 Del Method Nasal Cannula 12/02/24 11:16 O2 Flow Rate 2 12/02/24 11:16 BMI result Body Mass Index 23.2 Appearing in no acute distress lung sounds clear heart regular rate rhythm, clear S1, S2 positive bowel sounds, abdomen is soft, nontender neuro patient is alert x3, no focal deficits Objective Data Active Medications Acetaminophen (Acetaminophen 325 Mg Tablet) 650 mg PO Q6H PRN PRN Reason: Pain, Mild 1-3,fever,headache Last Admin: 12/02/24 08:11 Dose: 650 mg Documented By: DILIA Acetazolamide (Acetazolamide 250 Mg Tablet) 250 mg PO BID [facility] Last Admin: 12/02/24 08:07 Dose: 250 mg Documented By: DILIA Al Hydroxide/Mg Hydroxide (Magnesium Hydrox/Alum Hydrox 30 Ml Oral.Susp) 30 ml PO Q4H PRN PRN Reason: Heartburn Azithromycin (Azithromycin 250 Mg Tablet) 250 mg PO DAILY [facility] Stop: 12/03/24 08:59 Last Admin: 12/02/24 08:07 Dose: 250 mg Documented By: DILIA Benzonatate (Benzonatate 100 Mg Capsule) 200 mg PO TID PRN PRN Reason: Cough Last Admin: 11/29/24 17:53 Dose: 200 mg Documented By: PHANLYM Calcium Carbonate (Calcium Carbonate 750 Mg Tab.Chew) 750 mg PO Q4H PRN PRN Reason: Heartburn Ceftriaxone Sodium (Ceftriaxone Sodium 1 Gm Vial) 1 gm IVPUSH Q24H [facility] Last Admin: 12/01/24 12:54 Dose: 1 gm Documented By: DILIA Enoxaparin Sodium (Enoxaparin Sodium 40 Mg/0.4 Ml Syringe) 40 mg SUBCUT Q24H [facility] Last Admin: 12/01/24 16:10 Dose: 40 mg Documented By: DILIA Loratadine (Loratadine 10 Mg Tablet) 10 mg PO DAILY PRN PRN Reason: Allergy Symptoms Magnesium Hydroxide (Milk Of Magnesia 30 Ml Oral.Susp) 30 ml PO DAILY PRN PRN Reason: Constipation Last Admin: 12/02/24 08:11 Dose: 30 ml Documented By: DILIA Melatonin (Melatonin 3 Mg Tablet) 6 mg PO BEDTIME PRN PRN Reason: Insomnia Last Admin: 11/28/24 20:31 Dose: 6 mg Documented By: OLIVIA Ondansetron HCl (Ondansetron Hcl 4 Mg/2 Ml Vial) 4 mg IVPUSH Q8H PRN PRN Reason: Nausea and Vomiting Polyethylene Glycol (Polyethylene Glycol 3350 17 Gm Powd.Pack) 17 gm PO DAILY PRN PRN Reason: Constipation Last Admin: 12/01/24 12:54 Dose: 17 gm Documented By: DILIA Sodium Chloride (0.9 % Sodium Chloride Flush 3 Ml Syringe) 3 ml IVFLUSH QSHIFT [facility] Last Admin: 12/02/24 08:07 Dose: 3 ml Documented By: DILIA Labs 12/01/24 06:06 12/02/24 06:37 Labs: Laboratory Results - last 24 hr 12/01/24 12/02/24 11:56 06:37 Hold Purple Top SEE NOTE D-Dimer High Sensitivty 263 Anion Gap 11 L Estim Creat Clear Calc 67.0 Estimated GFR > 60 Random Glucose 106 Calcium 8.9 B-Natriuretic Peptide 538 H Assessment and Plan (1) Non-rheumatic aortic stenosis: Status: Acute (2) Sepsis: Status: Acute (3) Pneumonia: Status: Acute (4) Acute respiratory failure with hypoxia: Status: Acute (5) Acute diastolic (congestive) heart failure: Status: Acute Plan 84 year old female with no listed chronic medicaal conditions here with sob, cough with sputum production and found to haveUTI, PNA and sepsis, and new systolic murmur Acute hypoxic respiratory failure secondary to acute diastolic CHF exacerbation Bilateral effusion and pulmonary edema on CXR 11/30 Echo showed EF 50-55% and severe and severe Mitral calcifications IV Lasix stopped due to hypotension and hypercarbia cardio>does not appear to be in CHF, add metoprolol 12.5 Q6h Hypercarbia PCO2 46 Added diamox Sepsis d/t PNA improving Continue Ceftriaxone and Azithro, started 11/27 negative cultures O2 to keep sat 94 to 96 % PT eval rec SNF Severe , clinically and confirmed on echocardiogram seen by cardiology will need further testing with cardiac cath and possible TAVR Elevated LFTs, likely from sepsis DVT prophylaxis: lovenox Full code Quality Stroke Does the patient have a stroke diagnosis?: No VTE Prior VTE?: No VTE Risk Level:: Medical - moderate - high VTE Device Contraindication: Treatment Not Indicated VTE Drug Contraindication: N/A - Med Ordered
[2024-12-02 11:59] LABS: Alanine Aminotransferase 47 U/L (0-31); Albumin Level 2.8 g/dL (3.5-5.0); Alkaline Phosphatase 72 U/L (39-117); Aspartate Amino Transferase 45 U/L (5-31); Total Protein 5.6 g/dL (6.5-8.0)
[2024-12-03] VITALS (7 sets, daily range): BP systolic 92–113; BP diastolic 49–59; PULSE 92–101; RESP 16–18; TEMP 36.2–36.9; O2SAT 94–97
[2024-12-03] MEDS: 0.9 % Sodium Chloride Flush 3 ML SYRINGE IVFLUSH ×3 (08:40→21:48)
[2024-12-03 10:10] LABS: Anion Gap 11 (12-20); Blood Urea Nitrogen 21 mg/dL (9-16); Calcium 8.8 mg/dL (8.4-10.2); Carbon Dioxide 35 mmol/L (22-29); Chloride 98 mmol/L (96-108); Creatinine Clr Calc Pharmacy 65.8; Estimated Glomerular Filt Rate > 60; Potassium 3.7 mmol/L (3.3-5.1); Sodium 140 mmol/L (135-145)
--- NOTE | 2024-12-03 10:36 | PM.PNCARD ---
Subjective Subjective Date of Service: 12/03/24 Principal diagnosis: Hypoxemia, tachycardia Interval history: No symptoms of shortness of breath. She says she feels better. She is indicating that she wants to go home. Still requires oxygen supplementation and failed the home O2 evaluation. Review of Systems Constitutional: Reports no additional constitutional complaints Cardiovascular: Reports no additional cardiovascular complaints Respiratory: Reports no additional respiratory complaints Gastrointestinal: Reports no additional gastrointestinal complaints Skin/Breast: Reports system reviewed and no additional complaints, except as docu Reports system reviewed and no additional complaints, except as documented Physical Exam Vital Signs: Last Vital Signs Temp 97.2 F 12/03/24 07:12 Pulse 101 H 12/03/24 07:12 Resp 17 12/03/24 07:12 BP 113/56 L 12/03/24 07:12 Pulse Ox 97 12/03/24 07:12 O2 Del Method Oxymask 12/03/24 07:12 O2 Flow Rate 2 12/03/24 07:12 BMI result Body Mass Index 23.2 Const General: cooperative, comfortable, alert and awake Nutritional Appearance: thin and other (Frail elderly woman) Orientation/consciousness: patient oriented x3 Neck Neck: Yes trachea midline, Yes supple and Yes no JVD Resp Effort & Inspection: normal respiratory effort Auscultation: breath sounds absent bilateral (Base) Cardio Jugular venous distension: no JVD Rate: tachycardic Rhythm: regular rhythm Heart sounds: S1 normal heart sound present, no click, no gallops and Murmur heart sound present systolic late, decrescendo and crescendo Skin General skin exam: no rashes or lesions noted Neuro General: patient oriented x3 and no focal motor deficits Extrem General: Yes no clubbing, cyanosis or edema Objective Labs and Meds 12/01/24 06:06 12/03/24 09:11 Lab results: Laboratory Results - last 24 hr 12/02/24 12/03/24 06:37 09:11 Sodium 140 Potassium 3.7 D Chloride 98 Carbon Dioxide 35 H Anion Gap 11 L BUN 21 H Creatinine 0.53 Estim Creat Clear Calc 65.8 Estimated GFR > 60 Random Glucose 121 H Calcium 8.8 Total Bilirubin 0.1 Direct Bilirubin < 0.2 AST 45 H ALT 47 H Alkaline Phosphatase 72 Total Protein 5.6 L Albumin 2.8 L Progress Note: A&P Assessment and plan (1) Non-rheumatic aortic stenosis: Status: Acute Assessment and Plan: Critical aortic stenosis without overt signs of congestive heart failure. See below. Continue metoprolol therapy. Would also consider aspirin therapy. Would hold off on diuretic regimen at this point time. At home to use Lasix 20 mg daily when discharged. Heart failure symptoms were discussed with her. Will need TAVR evaluation. (2) Acute respiratory failure with hypoxia: Status: Acute Assessment and Plan: Patient with persistent hypoxemia does not appear to be related to congestive heart failure. Most likely related to either respiratory muscle weakness and/or significant pleural effusion with atelectasis. Would consider noncontrast CT to evaluate for pleural effusion that may require drainage. Also consider incentive spirometry. Will sign of the case. Thank you for allowing me to partake in her care Time Spent With Patient Time: Total time managing care of this patient today ____ minutes. Progress Note: Quality Stroke Does the patient have a stroke diagnosis?: No Procedures Date of Service Date of Service: 12/03/24
--- NOTE | 2024-12-03 11:56 | HO.PM.IMPN ---
Subjective Subjective Date of Service: 12/03/24 Interval History: feels better overall but still on O2 supplement CXR showing worsening edema and effusions tolerating PO Review of Systems Review of Systems: Yes all other systems are reviewed and are negative Physical Exam Vital Signs: Vital Signs: Last Vital Signs Temp 98.5 F 12/03/24 11:40 Pulse 96 12/03/24 11:40 Resp 16 12/03/24 11:40 BP 109/59 L 12/03/24 11:40 Pulse Ox 94 12/03/24 11:40 O2 Del Method Nasal Cannula 12/03/24 11:40 O2 Flow Rate 2 12/03/24 11:40 BMI result Body Mass Index 23.2 Objective Data Active Medications Acetaminophen (Acetaminophen 325 Mg Tablet) 650 mg PO Q6H PRN PRN Reason: Pain, Mild 1-3,fever,headache Last Admin: 12/02/24 08:11 Dose: 650 mg Documented By: DILIA Acetazolamide (Acetazolamide 250 Mg Tablet) 250 mg PO BID [facility] Last Admin: 12/03/24 08:30 Dose: 250 mg Documented By: ALEXIS Al Hydroxide/Mg Hydroxide (Magnesium Hydrox/Alum Hydrox 30 Ml Oral.Susp) 30 ml PO Q4H PRN PRN Reason: Heartburn Benzonatate (Benzonatate 100 Mg Capsule) 200 mg PO TID PRN PRN Reason: Cough Last Admin: 11/29/24 17:53 Dose: 200 mg Documented By: PHAZULLY Calcium Carbonate (Calcium Carbonate 750 Mg Tab.Chew) 750 mg PO Q4H PRN PRN Reason: Heartburn Ceftriaxone Sodium (Ceftriaxone Sodium 1 Gm Vial) 1 gm IVPUSH Q24H [facility] Last Admin: 12/02/24 13:34 Dose: 1 gm Documented By: DILIA Enoxaparin Sodium (Enoxaparin Sodium 40 Mg/0.4 Ml Syringe) 40 mg SUBCUT Q24H [facility] Last Admin: 12/02/24 16:46 Dose: 40 mg Documented By: DILIA Loratadine (Loratadine 10 Mg Tablet) 10 mg PO DAILY PRN PRN Reason: Allergy Symptoms Magnesium Hydroxide (Milk Of Magnesia 30 Ml Oral.Susp) 30 ml PO DAILY PRN PRN Reason: Constipation Last Admin: 12/02/24 08:11 Dose: 30 ml Documented By: DILIA Melatonin (Melatonin 3 Mg Tablet) 6 mg PO BEDTIME PRN PRN Reason: Insomnia Last Admin: 11/28/24 20:31 Dose: 6 mg Documented By: OLIVIA Metoprolol Tartrate (Metoprolol Tartrate 25 Mg Tablet) 25 mg PO QID [facility]; Protocol Last Admin: 12/03/24 08:30 Dose: 25 mg Documented By: ALEXIS Ondansetron HCl (Ondansetron Hcl 4 Mg/2 Ml Vial) 4 mg IVPUSH Q8H PRN PRN Reason: Nausea and Vomiting Polyethylene Glycol (Polyethylene Glycol 3350 17 Gm Powd.Pack) 17 gm PO DAILY PRN PRN Reason: Constipation Last Admin: 12/01/24 12:54 Dose: 17 gm Documented By: DILIA Sodium Chloride (0.9 % Sodium Chloride Flush 3 Ml Syringe) [facility] Last Admin: 12/03/24 08:40 Dose: 3 ml Documented By: ALEXIS Labs 12/01/24 06:06 12/03/24 09:11 Labs: Laboratory Results - last 24 hr 12/02/24 12/03/24 06:37 09:11 Anion Gap 11 L Estim Creat Clear Calc 65.8 Estimated GFR > 60 Random Glucose 121 H Calcium 8.8 Total Bilirubin 0.1 Direct Bilirubin < 0.2 AST 45 H ALT 47 H Alkaline Phosphatase 72 Total Protein 5.6 L Albumin 2.8 L Microbiology Microbiology Results: Microbiology 11/27/24 14:47 Blood Culture - Final Blood - Venous No growth after 5 days. 11/27/24 14:47 Blood Culture - Final Blood - Venous No growth after 5 days. Assessment and Plan (1) Non-rheumatic aortic stenosis: Status: Acute (2) Sepsis: Status: Acute (3) Pneumonia: Status: Acute (4) Acute respiratory failure with hypoxia: Status: Acute (5) Acute diastolic (congestive) heart failure: Status: Acute Plan 84 year old female with no listed chronic medicaal conditions here with sob, cough with sputum production and found to haveUTI, PNA and sepsis, and new systolic murmur Acute hypoxic respiratory failure secondary to acute diastolic CHF exacerbation Bilateral effusion and pulmonary edema on CXR 11/30 Echo showed EF 50-55% and severe and severe Mitral calcifications IV Lasix stopped due to hypotension and hypercarbia cardio>does not appear to be in CHF, add metoprolol 12.[address] for possible pleural effusion Hypercarbia PCO2 46, down to 35 stopped diamox Sepsis d/t PNA improving Continue Ceftriaxone and Azithro, started 11/27 negative cultures O2 to keep sat 94 to 96 % PT eval rec SNF Severe , clinically and confirmed on echocardiogram seen by cardiology will need further testing with cardiac cath and possible TAVR Elevated LFTs, likely from sepsis DVT prophylaxis: lovenox Full code Quality Stroke Does the patient have a stroke diagnosis?: No VTE Prior VTE?: No VTE Risk Level:: Medical - moderate - high VTE Device Contraindication: Treatment Not Indicated VTE Drug Contraindication: N/A - Med Ordered
[2024-12-03] MEDS: Metoprolol Tartrate 12.5 MG HALFTAB PO ×2 (13:08→17:00)
[2024-12-04] VITALS (8 sets, daily range): BP systolic 93–118; BP diastolic 50–62; PULSE 91–113; RESP 17–20; TEMP 35.9–37.2; O2SAT 91–100
[2024-12-04] MEDS: Metoprolol Tartrate 12.5 MG HALFTAB PO ×3 (08:48→19:47)
[2024-12-04] MEDS: 0.9 % Sodium Chloride Flush 3 ML SYRINGE IVFLUSH ×2 (08:48→17:06)
--- NOTE | 2024-12-04 10:53 | MHC.CM.PN ---
Per ROUNDS discussion, Patient is not yet medically cleared for dc (Pulmonary Consult is pending); Patient and Daughter want the plan to be home; CM will continue to follow.
--- NOTE | 2024-12-04 12:21 | P.CONPL_ITS ---
History of Present Illness History of Present Illness Consult date: 12/04/24 Chief complaint: PNA Narrative: This is an inpatient pulmonary consultation. 84 year old woman presenting with 3 days now with symptoms of lethargy, cough with phlegm production, poor apetite. She has been refusing to seek medical care until today when she was seen at her PCP office and noted to be in respiratory distresss, tachycardic, new murmur heard and hypoxic. She was then directed to come to the ED where she is noted to be tachycardic HR into 130's, tachypnic and O2 saturation as low as 84% and now better with oxygen, temp of 100.5. Further testing include WBC of 15.2, 21 bands Neutrophills, VBG is reassuring, AST and ALT mildly elevated 72/33 respectively. UA is consistent with UTI as well. BNP is 303. CXR show 1. Pulmonary hyperaeration. 2. Patchy airspace disease mid and lower left lung, suspicious for pneumonia in the appropriate clinical setting. ED treatm,ent: IVF, IV ceftriaxone and APAP the patient did have a CT scan of the chest which I personally reviewed demonstrating significant airspace disease with multilobar pneumonia primarily in the left lower lobe. Has a small pleural effusion there as well. Likely all infectious etiology. Clinically the patient is feels like she is getting better. The mucus is getting change management lead in color which is reassuring. Review of Systems 2 Constitutional: Constitutional: Reports no additional constitutional complaints Cardiovascular: Cardiovascular: Reports no additional cardiovascular complaints and Reports dyspnea on exertion Respiratory: Respiratory: Reports chest congestion, Reports cough and Reports dyspnea on exertion Gastrointestinal: Gastrointestinal: Reports no additional gastrointestinal complaints Integumentary/Breasts: Skin/Breast: Reports system reviewed and no additional complaints, except as docu Neurologic: Reports system reviewed and no additional complaints, except as documented [facility] Social History Social History Household Members: Children Household Members Other:: in law apartment attached to daughters home Housing: House Do you presently have visiting nurse or other home services: No Patient Tobacco Use Status: Current everyday Tobacco user Tobacco use type: Cigarette Cigarettes Per Day: 5 Years Smoked: 50 Smoked in Last 30 Days: Yes e-Cigarette/Vaping Use: Never Used Patient Interested in Nicotine Replacement: No Use of substances other than those prescribed or required for medical reasons: No Currently Displaying Signs/Symptoms of Drug Intoxication Withdrawal: No Have you been hit, kicked, punched, or otherwise hurt by someone within the past year? If so, by whom?: No Do you feel safe in your current relationship?: Yes Is there a partner from a previous relationship who is making you feel unsafe now?: No Are you made to feel afraid or neglected: No Christianity Healthcare Practices: Church Advance Directives: No Advance Directives Information Provided: Yes Do you have a plan to hurt others: No Plan Recently lost weight without trying: Yes How much weight loss: 2-13 pounds Eating poorly because of decreased appetite: Yes Nutrition screen score: 4 Nutrition Risks: Poor intake 0-25% >4 days Patient : No : No Poor oral hygiene: No service: No Meds Allergies Allergy/AdvReac Type Severity Reaction Status Date / Time celecoxib (From Celebrex) Allergy Palpitation Verified 11/27/24 14:21 s Active Medications: Current Medications Acetaminophen (Acetaminophen 325 Mg Tablet) 650 mg PO Q6H PRN PRN Reason: Pain, Mild 1-3,fever,headache Last Admin: 12/02/24 08:11 Dose: 650 mg Al Hydroxide/Mg Hydroxide (Magnesium Hydrox/Alum Hydrox 30 Ml Oral.Susp) 30 ml PO Q4H PRN PRN Reason: Heartburn Benzonatate (Benzonatate 100 Mg Capsule) 200 mg PO TID PRN PRN Reason: Cough Last Admin: 11/29/24 17:53 Dose: 200 mg Calcium Carbonate (Calcium Carbonate 750 Mg Tab.Chew) 750 mg PO Q4H PRN PRN Reason: Heartburn Ceftriaxone Sodium (Ceftriaxone Sodium 1 Gm Vial) 1 gm IVPUSH Q24H [facility]PLAC[facility] BY [facility] Last Admin: 12/03/24 13:08 Dose: 1 gm Enoxaparin Sodium (Enoxaparin Sodium 40 Mg/0.4 Ml Syringe) 40 mg SUBCUT Q24H [facility]PLAC[facility] Last Admin: 12/03/24 16:59 Dose: 40 mg Loratadine (Loratadine 10 Mg Tablet) 10 mg PO DAILY PRN PRN Reason: Allergy Symptoms Magnesium Hydroxide (Milk Of Magnesia 30 Ml Oral.Susp) 30 ml PO DAILY PRN PRN Reason: Constipation Last Admin: 12/02/24 08:11 Dose: 30 ml Melatonin (Melatonin 3 Mg Tablet) 6 mg PO BEDTIME PRN PRN Reason: Insomnia Last Admin: 11/28/24 20:31 Dose: 6 mg Metoprolol Tartrate (Metoprolol Tartrate 12.5 Mg Halftab) 12.5 mg PO QID [facility]PLAC[facility] BY [facility]; Protocol Last Admin: 12/04/24 08:48 Dose: 12.5 mg Ondansetron HCl (Ondansetron Hcl 4 Mg/2 Ml Vial) 4 mg IVPUSH Q8H PRN PRN Reason: Nausea and Vomiting Polyethylene Glycol (Polyethylene Glycol 3350 17 Gm Powd.Pack) 17 gm PO DAILY PRN PRN Reason: Constipation Last Admin: 12/01/24 12:54 Dose: 17 gm Sodium Chloride (0.9 % Sodium Chloride Flush 3 Ml Syringe) 3 ml IVFLUSH [facility] Last Admin: 12/04/24 08:48 Dose: 3 ml Home Medications ?Medication ?Instructions ?Recorded ?Confirmed ?Last Taken ?Type acetaminophen 325 mg tablet 650 mg PO Q4H PRN Pain 11/27/24 Unknown History ibuprofen 200 mg tablet (Advil) 400 mg PO Q6H PRN Pain 11/27/24 11/27/24 Unknown History loratadine 10 mg tablet (Claritin) 10 mg PO DAILY PRN Allergy Symptoms 11/27/24 11/27/24 Unknown History Physical Exam 2 Vital Signs: Vital Signs: Last Vital Signs Temp 98.9 F 12/04/24 11:24 Pulse 96 12/04/24 11:24 Resp 18 12/04/24 11:24 BP 118/56 L 12/04/24 11:24 Pulse Ox 97 12/04/24 11:24 O2 Del Method Nasal Cannula 12/04/24 11:24 O2 Flow Rate 2 12/04/24 11:24 BMI result Body Mass Index 23.2 Const: General: cooperative, comfortable, alert and awake Nutritional Appearance: thin Orientation/consciousness: patient oriented x3 Neck: Neck: Yes trachea midline, Yes supple and Yes no JVD Resp: Effort & Inspection: normal respiratory effort Auscultation: breath sounds absent bilateral (Base) Cardio: Jugular venous distension: no JVD Rate: tachycardic Rhythm: r egular rhythm Heart sounds: S1 normal heart sound present and Murmur heart sound present systolic late, decrescendo and crescendo Skin: General skin exam: no rashes or lesions noted Neuro: General: patient oriented x3 and no focal motor deficits Extrem: General: Yes no clubbing, cyanosis or edema Results Laboratory Findings 12/01/24 06:06 12/03/24 09:11 ABG, PT/INR, D-dimer: PT/INR, D-dimer PT 13.1 SEC (10.9-12.4) H 11/27/24 14:47 INR 1.1 (0.9-1.1) 11/27/24 14:47 Abnormal lab findings: Abnormal Labs 11/27/24 11/27/24 11/27/24 14:47 14:55 15:10 WBC 15.2 H RBC 3.65 L Hgb 10.4 L Hct 32.4 L MPV 8.8 L Absolute Nucleated RBC Nucleated RBC % (auto) Neutrophils % (Manual) Band Neutrophils % 21 H Lymphocytes % (Manual) 2 L Abs Neuts (Manual) 13.2 H Lymphocytes # (Manual) 0.3 L Monocytes # (Manual) 1.7 H PT 13.1 H VBG HCO3 36 H Chloride Carbon Dioxide 31 H Anion Gap BUN 48 H Creatinine Random Glucose 156 H AST 72 H ALT 33 H Troponin I High Sens 41.2 H B-Natriuretic Peptide 303 H Total Protein Albumin 3.4 L Ur Leukocyte Esterase Small (1+) H Urine RBC 3-5 H Urine WBC 6-10 H 11/28/24 11/28/24 11/29/24 06:19 11:19 10:17 WBC 14.1 H 11.8 H RBC 2.81 L D 2.80 L Hgb 8.2 L D 8.0 L Hct 24.8 L D 25.1 L MPV 9.0 L 9.1 L Absolute Nucleated RBC 0.030 H Nucleated RBC % (auto) 0.3 H Neutrophils % (Manual) Band Neutrophils % Lymphocytes % (Manual) Abs Neuts (Manual) Lymphocytes # (Manual) Monocytes # (Manual) PT VBG HCO3 Chloride Carbon Dioxide 34 H Anion Gap 11 L BUN 46 H 22 H Creatinine Random Glucose 122 H 194 H AST 81 H ALT 41 H Troponin I High Sens B-Natriuretic Peptide Total Protein 5.3 L Albumin 2.8 L Ur Leukocyte Esterase Urine RBC Urine WBC 12/01/24 12/02/24 12/03/24 06:06 06:37 09:11 WBC 13.0 H RBC 2.93 L Hgb 8.2 L Hct 26.1 L MPV Absolute Nucleated RBC 0.040 H Nucleated RBC % (auto) 0.3 H Neutrophils % (Manual) 79 H Band Neutrophils % 1 L Lymphocytes % (Manual) 9 L Abs Neuts (Manual) 10.4 H Lymphocytes # (Manual) Monocytes # (Manual) PT VBG HCO3 Chloride 91 L Carbon Dioxide 34 H 46 H* D 35 H Anion Gap 11 L 11 L BUN 19 H 21 H Creatinine 0.43 L Random Glucose 121 H AST 45 H ALT 47 H Troponin I High Sens B-Natriuretic Peptide 538 H Total Protein 5.6 L Albumin 2.8 L Ur Leukocyte Esterase Urine RBC Urine WBC Microbiology: Microbiology 11/27/24 14:47 Blood - Venous Blood Culture - Final No growth after 5 days. 11/27/24 14:47 Blood - Venous Blood Culture - Final No growth after 5 days. 11/27/24 15:50 Urine clean catch - Clean Catch Midstream Urine Culture - Final Assessment and Plan (1) Pneumonia: Qualifiers: Pneumonia type: due to unspecified organism Laterality: bilateral Lung location: unspecified part of lung Qualified Code(s): J18.9 - Pneumonia, unspecified organism Status: Acute (2) Acute respiratory failure with hypoxia: Status: Acute (3) Non-rheumatic aortic stenosis: Status: Acute Plan The patient presenting with severe community-acquired pneumonia and acute respiratory failure currently on oxygen supplementation seems to be responding to the current medication regimen. Recommendations: Continue antibiotic regimen to complete an 8 day course of antibiotics Will check Legionella and strep pneumo urine antigen MRSA screen Continue oxygen supplementation to maintain a pulse ox above 90% Cardiology evaluating significant aortic stenosis Serial chest x-rays to follow up progression Procedures Date of Service Date of Service: 12/04/24
--- NOTE | 2024-12-04 13:52 | P.DS_ITS ---
DS: Providers Provider Date of Service: 12/05/24 <DAMEON Kan - Last Filed: 12/05/24 14:56> Date of admission: 11/27/24 15:56 <Tesha Jorge NP - Last Filed: 12/04/24 14:00> Date of discharge: 12/05/24 <DAMEON Kan - Last Filed: 12/05/24 14:56> Primary care physician: Winsome Zafar MD <Tesha Jorge NP - Last Filed: 12/04/24 14:00> Consults: 11/27/24 22:10 Consult to Wound Care Routine Reason for consultation: abrasion R ear daughter is concerned 11/28/24 07:31 Consult to Cardiology Routine Consulting Provider: [facility] Reason for consultation: ? heart failure, 12/04/24 07:56 Consult to Pulmonology Routine Consulting Provider: [facility] Reason for consultation: pneumonia <Tesha Jorge NP - Last Filed: 12/04/24 14:00> Attending physician on discharge: Scar Smith <DAMEON Kan - Last Filed: 12/05/24 14:56> Discharging clinician: Jadyn Cox <DAMEON Kan - Last Filed: 12/05/24 14:56> DS: Diagnosis Discharge Diagnosis (1) Pneumonia: Status: Acute <Tesha Jorge NP - Last Filed: 12/04/24 14:00> (2) Acute respiratory failure with hypoxia: Status: Acute <Tesha Jorge NP - Last Filed: 12/04/24 14:00> (3) Non-rheumatic aortic stenosis: Status: Acute <Tesha Jorge NP - Last Filed: 12/04/24 14:00> DS: Summary Hospital Course Hospital Course: History and physical as per admitting provider. 84 year old sudanese speaking patient, acompanied by her daughter who speaks sudanese. Acoording to her daughter, patient has been since for about 3 days now with symptoms of lethargy, cough with phlegm production, poor apetite. She has been refusing to seek medical care until today when she was seen at her PCP office and noted to be in respiratory distresss, tachycardic, new murmur heard and hypoxic. She was then directed to come to the ED where she is noted to be tachycardic HR into 130's, tachypnic and O2 saturation as low as 84% and now better with oxygen, temp of 100.5. Further testing include WBC of 15.2, 21 bands Neutrophills, VBG is reassuring, AST and ALT mildly elevated 72/33 respectively. UA is consistent with UTI as well. BNP is 303. CXR show 1. Pulmonary hyperaeration. 2. Patchy airspace disease mid and lower left lung, suspicious for pneumonia in the appropriate clinical setting. ED treatm,ent: IVF, IV ceftriaxone and APAP 84-year-old woman treated for acute hypoxic respiratory failure secondary to acute diastolic congestive heart failure, pneumonia and severe aortic stenosis. Initially patient was treated with IV Lasix and the following day her bicarb was quite elevated and she was started on Diamox. After discussion with Cardiology they thought that her symptoms were likely not related to acute congestive heart failure and more likely respiratory culprit. She had a repeat CT scan which showed multifocal pneumonia most advanced in the left lower lung base. She has been on ceftriaxone for approximately 7 days, pulmonology recommended 7 more days of antibiotics. MRSA screening negative. Legionella and strep pneumo antigen pending at the time of discharge. Recommend outpatient repeat imaging to assess for resolution. Cardiology recommended discharging the patient with 20 mg of oral Lasix. Patient had home oxygen evaluation and qualifies for 2 L of supplemental oxygen with ambulation. Hypercarbia. Treated with Diamox, stopped Sepsis secondary to pneumonia treated with Rocephin and azithromycin. Negative cultures. Physical therapy recommended short-term rehab however patient does have 24 hour care at home via family so she will be discharged home as per family wishes. Family has declined visiting nurses. Severe aortic stenosis. Seen by Cardiology, recommend outpatient workup for TAVR <Tesha Jorge NP - Last Filed: 12/04/24 14:00> Time Attestation Discharge Coordination Time (in mins): 36 <DAMEON Kan - Last Filed: 12/05/24 14:56> Quality: Safe Use of Opioids Does Pt have an Active Cancer Diagnosis on the Problem List?: No <DAMEON Kan - Last Filed: 12/05/24 14:56> Quality: Stroke Does the patient have a stroke diagnosis?: No <DAMEON Kan Last Filed: 12/05/24 14:56> Physical Exam Vital Signs: Vital Signs: Last Vital Signs Temp 98.9 F 12/04/24 11:24 Pulse 96 12/04/24 11:24 Resp 18 12/04/24 11:24 BP 118/56 L 12/04/24 11:24 Pulse Ox 97 12/04/24 11:24 O2 Del Method Nasal Cannula 12/04/24 11:24 O2 Flow Rate 2 12/04/24 11:24 BMI result Body Mass Index 23.2 <Tesha Jorge NP - Last Filed: 12/04/24 14:00> Appearing in no acute distress head is normocephalic atraumatic eyes pupils are PERRLA sclera is anicteric mouth throat mucous membranes are intact and moist neck is supple no lymphadenopathy, no JVD noted lung sounds mild rhonchi heart regular rate rhythm, clear S1, S2 positive bowel sounds, abdomen is soft, nontender neuro patient is alert x3, no focal deficits <Tesha Jorge NP - Last Filed: 12/04/24 14:00> Const: General: cooperative, comfortable, no acute distress, alert and awake <DAMEON Kan - Last Filed: 12/05/24 14:56> Nutritional Appearance: average body habitus <DAMEON Kan - Last Filed: 12/05/24 14:56> Orientation/consciousness: patient oriented x3 <DAMEON Kan Last Filed: 12/05/24 14:56> Resp: Effort & Inspection: normal respiratory effort, able to speak in complete sentences, no respiratory distress and no use of accessory muscles <DAMEON Kan Last Filed: 12/05/24 14:56> Cardio: Rate: regular rate <DAMEON Kan Last Filed: 12/05/24 14:56> GI: Palpation (GI): Soft to palpation <DAMEON Kan - Last Filed: 12/05/24 14:56> Neuro: General: patient oriented x3 and Normal light touch and pain sensation <DAMEON Kan Last Filed: 12/05/24 14:56> Discharge Plan Discharge Anticipated Discharge Date/Time: 12/05/24 16:00 <Tesha Jorge NP - Last Filed: 12/04/24 14:00> Patient Disposition: Home, Self-Care <Tesha Jorge NP - Last Filed: 12/04/24 14:00> Discharge Diagnosis: Acute hypoxic respiratory failure Acute diastolic congestive heart failure with preserved ejection fraction Hypercarbia Sepsis Pneumonia History of severe aortic stenosis <Tesha Jorge NP - Last Filed: 12/04/24 14:00> Acute hypoxic respiratory failure Acute diastolic congestive heart failure with preserved ejection fraction Hypercarbia Sepsis Pneumonia History of severe aortic stenosis <DAMEON Kan - Last Filed: 12/05/24 14:56> Referrals: Winsome Zafar MD [Primary Care Provider, Internal Medicine] - 1 Week <Tesha Jorge NP - Last Filed: 12/04/24 14:00> Discharge Medications: New levofloxacin 750 mg tablet 750 mg PO Q24H Qty: 7 0RF furosemide [Lasix] 20 mg tablet 20 mg PO DAILY Qty: 90 0RF metoprolol tartrate 25 mg tablet 25 mg PO Q12H 90 Days Qty: 180 0RF (DME) Ultra-Light Rollator Misc See Rx Instructions .Route Qty: 1 0RF Rx Instructions: As directed Continued acetaminophen 325 mg Tablet 650 mg PO Q4H PRN (Reason: Pain) loratadine [Claritin] 10 mg Tablet 10 mg PO DAILY PRN (Reason: Allergy Symptoms) Discontinued ibuprofen [Advil] 200 mg Tablet 400 mg PO Q6H PRN (Reason: Pain) <Tesha Jorge NP - Last Filed: 12/04/24 14:00> Discharge Orders: Discharge Order (Routine); Ordered 12/05/24 Ordered By: Jadyn Cox <Tesha Jorge NP - Last Filed: 12/04/24 14:00> Diet: Advance to usual diet <Tesha Jorge NP - Last Filed: 12/04/24 14:00> Advance to usual diet <DAMEON Kan - Last Filed: 12/05/24 14:56> Activity on Discharge: As tolerated <Tesha Jorge NP - Last Filed: 12/04/24 14:00> As tolerated <DAMEON Kan - Last Filed: 12/05/24 14:56> Stand Alone Forms: Patient Portal Discharge page <Tesha Jorge NP - Last Filed: 12/04/24 14:00> Print Language: Bahraini <Tesha Jorge NP - Last Filed: 12/04/24 14:00> Other Ambulatory Orders: Basic Metabolic Panel (Routine) Timeframe: 1 Week Facility: [facility] - Location: Laboratory Ordered By: Jadyn Cox <Tesha Jorge NP - Last Filed: 12/04/24 14:00> Care Plan Goals: Complete antibiotics Will be sent home with oxygen, 2 L at all times. <Tesha Jorge NP - Last Filed: 12/04/24 14:00> Health Concerns: Acute hypoxic respiratory failure Acute diastolic congestive heart failure with preserved ejection fraction Hypercarbia Sepsis Pneumonia History of severe aortic stenosis <Tesha Jorge NP - Last Filed: 12/04/24 14:00> Plan of Treatment: Outpatient follow up with Cardiology for TAVR evaluation Complete course of antibiotics for pneumonia Recommend outpatient repeat lung imaging to assess for resolution of infection/pleural effusion Follow-up with primary care provider - call to schedule an appointment repeat labs in one week Take all medications as prescribed home oxygen - you qualify with 2L NC with ambulation Left Ear - Cleanse with saline moist gauze, pat dry. Apply Vaseline to wound bed, cover with bandaid or dry dressing <Tesha Jorge NP - Last Filed: 12/04/24 14:00> Assessment: See discharge summary <Tesha Jorge NP - Last Filed: 12/04/24 14:00>
--- NOTE | 2024-12-04 14:00 | HO.PM.IMPN ---
Subjective Subjective Date of Service: 12/04/24 Interval History: feels better overall but still on O2 supplement CXR showing worsening edema and effusions tolerating PO Review of Systems Review of Systems: Yes all other systems are reviewed and are negative Physical Exam Vital Signs: Vital Signs: Last Vital Signs Temp 98.9 F 12/04/24 11:24 Pulse 96 12/04/24 11:24 Resp 18 12/04/24 11:24 BP 118/56 L 12/04/24 11:24 Pulse Ox 97 12/04/24 11:24 O2 Del Method Nasal Cannula 12/04/24 11:24 O2 Flow Rate 2 12/04/24 11:24 BMI result Body Mass Index 23.2 Appearing in no acute distress lung sounds mild rhonchi heart regular rate rhythm, clear S1, S2 positive bowel sounds, abdomen is soft, nontender neuro patient is alert x3, no focal deficits Objective Data Active Medications Acetaminophen (Acetaminophen 325 Mg Tablet) 650 mg PO Q6H PRN PRN Reason: Pain, Mild 1-3,fever,headache Last Admin: 12/02/24 08:11 Dose: 650 mg Documented By: DILIA Al Hydroxide/Mg Hydroxide (Magnesium Hydrox/Alum Hydrox 30 Ml Oral.Susp) 30 ml PO Q4H PRN PRN Reason: Heartburn Benzonatate (Benzonatate 100 Mg Capsule) 200 mg PO TID PRN PRN Reason: Cough Last Admin: 11/29/24 17:53 Dose: 200 mg Documented By: PHAZULLY Calcium Carbonate (Calcium Carbonate 750 Mg Tab.Chew) 750 mg PO Q4H PRN PRN Reason: Heartburn Ceftriaxone Sodium (Ceftriaxone Sodium 1 Gm Vial) 1 gm IVPUSH Q24H [facility] Last Admin: 12/04/24 13:56 Dose: 1 gm Documented By: FIGDISCOTTY Enoxaparin Sodium (Enoxaparin Sodium 40 Mg/0.4 Ml Syringe) 40 mg SUBCUT Q24H [facility] Last Admin: 12/03/24 16:59 Dose: 40 mg Documented By: FOSTEKAshleigh Loratadine (Loratadine 10 Mg Tablet) 10 mg PO DAILY PRN PRN Reason: Allergy Symptoms Magnesium Hydroxide (Milk Of Magnesia 30 Ml Oral.Susp) 30 ml PO DAILY PRN PRN Reason: Constipation Last Admin: 12/02/24 08:11 Dose: 30 ml Documented By: DILIA Melatonin (Melatonin 3 Mg Tablet) 6 mg PO BEDTIME PRN PRN Reason: Insomnia Last Admin: 11/28/24 20:31 Dose: 6 mg Documented By: OLIVIA Metoprolol Tartrate (Metoprolol Tartrate 12.5 Mg Halftab) 12.5 mg PO QID [facility]; Protocol Last Admin: 12/04/24 13:57 Dose: Not Given Documented By: MARY Non-Admin Reason: Decreased Blood Pressure Ondansetron HCl (Ondansetron Hcl 4 Mg/2 Ml Vial) 4 mg IVPUSH Q8H PRN PRN Reason: Nausea and Vomiting Polyethylene Glycol (Polyethylene Glycol 3350 17 Gm Powd.Pack) 17 gm PO DAILY PRN PRN Reason: Constipation Last Admin: 12/01/24 12:54 Dose: 17 gm Documented By: DILIA Sodium Chloride (0.9 % Sodium Chloride Flush 3 Ml Syringe) 3 ml IVFLUSH QSHIFT [facility] Last Admin: 12/04/24 08:48 Dose: 3 ml Documented By: KINGKAI Labs 12/01/24 06:06 12/03/24 09:11 Assessment and Plan (1) Non-rheumatic aortic stenosis: Status: Acute (2) Sepsis: Status: Acute (3) Pneumonia: Status: Acute (4) Acute respiratory failure with hypoxia: Status: Acute (5) Acute diastolic (congestive) heart failure: Status: Acute Plan 84 year old female with no listed chronic medicaal conditions here with sob, cough with sputum production and found to haveUTI, PNA and sepsis, and new systolic murmur Acute hypoxic respiratory failure secondary to acute diastolic CHF exacerbation Bilateral effusion and pulmonary edema on CXR 11/30 Echo showed EF 50-55% and severe and severe Mitral calcifications IV Lasix stopped due to hypotension and hypercarbia cardio>does not appear to be in CHF, add metoprolol 12.5 Q6h Hypercarbia. Resolving PCO2 46, down to 35 stopped diamox Sepsis d/t PNA improving Continue Ceftriaxone and Azithro, started 11/27 negative cultures O2 to keep sat 94 to 96 % PT eval rec SNF, however pt ill go home with family Chest CT 12/03> multifocal pna seen by pulm> check MRSA, leg and strep. complete abx treatment Severe , clinically and confirmed on echocardiogram seen by cardiology will need further testing with cardiac cath and possible TAVR o/p Elevated LFTs, likely from sepsis DVT prophylaxis: lovenox Full code Quality Stroke Does the patient have a stroke diagnosis?: No VTE Prior VTE?: No VTE Risk Level:: Medical - moderate - high VTE Device Contraindication: Treatment Not Indicated VTE Drug Contraindication: N/A - Med Ordered
[2024-12-04 15:44] LABS: MRSA Nasal PCR NEGATIVE (Negative); SA Nasal PCR NEGATIVE (Negative)
[2024-12-05 03:15] VITALS: BP 114/56; PULSE 92; RESP 17; TEMP 36.5; O2SAT 98
[2024-12-05] MEDS: 0.9 % Sodium Chloride Flush 3 ML SYRINGE IVFLUSH ×3 (06:38→17:28)
[2024-12-05 08:00] VITALS: BP 110/52; PULSE 108; RESP 16; TEMP 36.9; O2SAT 98
[2024-12-05] MEDS: Metoprolol Tartrate 12.5 MG HALFTAB PO ×3 (10:34→17:27)
--- NOTE | 2024-12-05 10:46 | MHC.CM.PN ---
Per ROUNDS discussion, Patient is medically cleared for dc to home today, self care. IMM was addressed. CM spoke with Daughter/HCP/Mary Jo at listed # and she will be here after 5 PM to transport to home. HCP has confirmed again that she and Patient are not interested in STR nor VNA; PA & RN are aware.
[2024-12-05 11:54] VITALS: BP 109/54; PULSE 122; RESP 18; TEMP 36.9; O2SAT 90
--- NOTE | 2024-12-05 13:34 | MHC.CM.PN ---
Per PT's recommendation, CM has asked PA to write a script for a walker; she is agreeable.RN is aware.
[2024-12-05 14:43] VITALS: PULSE 108; PULSE 109; PULSE 111; PULSE 114; O2SAT 81; O2SAT 85; O2SAT 88; O2SAT 97
[2024-12-05 14:59] VITALS: BP 94/54; PULSE 102; RESP 18; TEMP 36.7; O2SAT 88
[2024-12-14 05:03] LABS: Strep Pneumo Ag urine Not Detected (Not Detected)
== END 2024-12-05 18:26 | disposition home or self-care (01) | DRG 871 ==
LOC: HO.ED 16:13 → HO.EDOVER 16:22 → HO.IMC 19:12
PROVIDERS: Hospitalist; Nurse Practitioner Acute Care; Physician Assistant Medical; Registered Nurse Emergency; Student in an Organized Health Care Education/Training Program; Admitting Provider Internal Medicine; Emergency Provider Emergency Medicine; PCP Internal Medicine; Visit Provider Physician Assistant Medical
DX: A41.9 Sepsis, unspecified organism (principal); I50.31 Acute diastolic (congestive) heart failure; J96.01 Acute respiratory failure with hypoxia; J96.02 Acute respiratory failure with hypercapnia; N39.0 Urinary tract infection, site not specified; I35.0 Nonrheumatic aortic (valve) stenosis; F17.210 Nicotine dependence, cigarettes, uncomplicated; Z71.6 Tobacco abuse counseling; Z79.899 Other long term (current) drug therapy
CPT/HCPCS: 36415; 71045; 71250; 80048; 80053; 80076; 81001; 82803; 83605; 83880; 84484; 85007; 85025; 85027; 85379; 85610; 87040; 87086; 87449; 87640; 87641; 87899; 93005; 93306; 97116; 97163; 97530; 99285; J0131; J0696; J1650; J1938

== ENCOUNTER → 2024-11-27 13:56 | Outpatient (BNV) | payer MEDICARE, SELFPAY | PROVIDERS: PCP Internal Medicine; Visit Provider Internal Medicine | DX: R00.0 Tachycardia, unspecified (principal) | CPT/HCPCS: 93010 ==

== ENCOUNTER → 2024-11-27 14:57 | Outpatient (BNV) | payer MEDICARE, SELFPAY | PROVIDERS: PCP Internal Medicine; Visit Provider Radiology Diagnostic Radiology | DX: R06.02 Shortness of breath (principal) | CPT/HCPCS: 71045 ==

== ENCOUNTER 2024-11-27 15:56 | Outpatient (BNV) | payer MEDICARE, SELFPAY | END 2024-12-03 11:55 | PROVIDERS: Admitting Provider Internal Medicine; Emergency Provider Emergency Medicine; PCP Internal Medicine; Visit Provider Radiology Diagnostic Radiology | DX: J18.9 Pneumonia, unspecified organism (principal) | CPT/HCPCS: 71250 ==

== ENCOUNTER 2024-11-27 15:56 | Outpatient (BNV) | payer MEDICARE, SELFPAY | END 2024-12-05 07:00 | PROVIDERS: Admitting Provider Internal Medicine; Emergency Provider Emergency Medicine; PCP Internal Medicine; Visit Provider Radiology Diagnostic Radiology | DX: J18.9 Pneumonia, unspecified organism (principal) | CPT/HCPCS: 71045 ==

== ENCOUNTER 2024-11-27 15:56 | Outpatient (BNV) | payer MEDICARE, SELFPAY | END 2024-12-01 08:30 | PROVIDERS: Admitting Provider Internal Medicine; Emergency Provider Emergency Medicine; PCP Internal Medicine; Visit Provider Radiology Diagnostic Radiology | DX: J90 Pleural effusion, not elsewhere classified (principal) | CPT/HCPCS: 71045 ==

== ENCOUNTER 2024-11-27 15:56 | Outpatient (BNV) | payer MEDICARE, SELFPAY | END 2024-11-28 07:00 | PROVIDERS: Admitting Provider Internal Medicine; Emergency Provider Emergency Medicine; PCP Internal Medicine; Visit Provider Internal Medicine | DX: I35.0 Nonrheumatic aortic (valve) stenosis (principal); I42.2 Other hypertrophic cardiomyopathy; I34.81 Nonrheumatic mitral (valve) annulus calcification; I51.7 Cardiomegaly | CPT/HCPCS: 93306 ==

== ENCOUNTER → 2024-11-27 15:56 | Outpatient (BNV) | payer MEDICARE, SELFPAY | PROVIDERS: Admitting Provider Internal Medicine; Emergency Provider Emergency Medicine; PCP Internal Medicine; Visit Provider Internal Medicine | DX: I35.0 Nonrheumatic aortic (valve) stenosis (principal); J18.9 Pneumonia, unspecified organism; A41.9 Sepsis, unspecified organism | CPT/HCPCS: 99223; 99233 ==

== ENCOUNTER → 2024-11-27 15:56 | Outpatient (BNV) | payer MEDICARE, SELFPAY | PROVIDERS: Admitting Provider Internal Medicine; Emergency Provider Emergency Medicine; PCP Internal Medicine; Visit Provider Hospitalist | DX: J18.9 Pneumonia, unspecified organism (principal); J96.01 Acute respiratory failure with hypoxia; I35.0 Nonrheumatic aortic (valve) stenosis | CPT/HCPCS: 99223 ==

== ENCOUNTER → 2024-11-27 15:56 | Outpatient (BNV) | payer MEDICARE, SELFPAY | PROVIDERS: Admitting Provider Internal Medicine; Emergency Provider Emergency Medicine; PCP Internal Medicine; Visit Provider Internal Medicine | DX: I35.0 Nonrheumatic aortic (valve) stenosis (principal); A41.9 Sepsis, unspecified organism; J18.9 Pneumonia, unspecified organism; J96.01 Acute respiratory failure with hypoxia; I50.31 Acute diastolic (congestive) heart failure | CPT/HCPCS: 99233 ==

== ENCOUNTER 2024-12-23 14:24 | Outpatient (AMB) | payer MEDICARE, SELFPAY ==
[2024-12-23 14:45] VITALS: BP 100/52; PULSE 85
--- NOTE | 2024-12-23 14:45 | MHC.OFFVIS ---
Vital Signs 12/23/24 14:45 Height 5 ft 4 in Weight 116 lb 6.465 oz BMI 20.0 BP 100/52 L Blood Pressure Location Lt brachial Position Sitting Pulse 85 Pulse Source Pulse Oximeter Intake Visit Reasons: [id number] Follow up Secretary Book Keeper Required: No Three Dimensional Art Instructor: Three Dimensional Art Instructor Present Allergies celecoxib (From Celebrex) Allergy (Verified 12/23/24 14:48) Palpitations Medication List - Last Reconciled 12/23/24 by Makenna Chapman NP-C loratadine (Claritin) 10 mg PO DAILY PRN metoprolol tartrate 25 mg PO Q12H 90 days walker (Ultra-Light Rollator misc) As directed HPI HPI [id number] Follow up: Details: Myke an 84-year-old female with no significant past medical history who was recently admitted to [facility] with cough, shortness of breath, lethargy. She was found to have a multifocal pneumonia, acute Congestive heart failure and severe aortic stenosis. She was managed medically with improvement in her condition. She was discharged with PRN oxygen for ongoing hypoxemia. She now presents for follow-up. Today she reports that she has been doing generally well since her hospital discharge. She still has some shortness of breath with activity. She wears her oxygen as needed, not during the night. She has had no fever or cough. She sleeps with 2 pillows which is her norm. No chest discomfort at rest or with activity. No heart palpitations, lightheadedness, presyncope, syncope, falls. Her daughter does report 3 syncopal episodes within the last year. She is hard of hearing. She speaks Romansh and [place]ican. Daughter assist with [place] translation. [facility] Medical History (Updated 12/23/24 @ 16:36 by Makenna Chapman, APPOINTMENT COORDINATOR-C) Non-rheumatic aortic stenosis Social History Household Members: Children Household Members Other:: in law apartment attached to daughters home Housing: House Do you presently have visiting nurse or other home services: No Patient Tobacco Use Status: Current everyday Tobacco user Tobacco use type: Cigarette Cigarettes Per Day: 5 Years Smoked: 50 e-Cigarette/Vaping Use: Never Used service: No Review of Systems Const All systems reviewed & are unremarkable except as noted in HPI and below ENT Denies dizziness Card Details: wearing O2 prn Denies chest pain, Denies chest pain at rest, Denies chest pain with activity, Denies rapid heart rate, Denies pedal edema, Denies edema, Denies leg edema, Denies lightheadedness, Denies palpitations, Denies dyspnea, Reports dyspnea on exertion and Denies orthopnea Resp Denies cough, Denies dyspnea and Reports dyspnea on exertion GI Denies hematochezia and Denies change in stool character Musc Denies abnormal gait, Denies limited range of motion, Denies muscle cramps, Denies muscle weakness, Denies numbness, Denies radiating pain into limb, Denies stiffness and Denies tingling Neuro Denies abnormal gait, Denies dizziness, Denies numbness and Denies tingling Endo Denies palpitations Physical Exam Vital Signs: Last Vital Signs Pulse 85 12/23/24 14:45 BP 100/52 L 12/23/24 14:45 BMI result Body Mass Index 20.0 Const Other: frail elderly, hard of hearing General: cooperative, healthy appearing, comfortable and no acute distress Orientation/consciousness: patient oriented x3 Neck Neck: Yes normal visual inspection Chest Chest palpation & inspection: normal inspection of the chest Resp Effort & Inspection: normal respiratory effort Auscultation: clear to auscultation bilaterally, rales (left base), no rhonchi and no wheezes Cardio Jugular venous distension: no JVD Rate: regular rate Rhythm: regular rhythm Heart sounds: S2 normal heart sound present, Murmur heart sound present (3/6 systolic left sternal border) and no rubs Neuro General: patient oriented x3 Extrem General: Yes normal to inspection, No no pedal edema and No calf tenderness Psych Appearance: grossly normal Mental Status: mental status grossly normal Speech and movement: Normal speech and movement present Assessment & Plan Assessment & Plan (1) Non-rheumatic aortic stenosis: Code(s): I35.0 - Nonrheumatic aortic (valve) stenosis Category: Medical Plan: [place] [facility] [place] with [place], Congestive heart failure and finding of severe aortic stenosis. Echocardiogram 11/28/2024 showed EF 50-55%, moderate increase in LV thickness, severe aortic stenosis with mean gradient 46 mmHg, aortic valve area 0.59 centimeter sq, severe mitral annular calcification. Murmur noted on examination. TAVR procedure reviewed with her and she is interested in further evaluation. Will make arrangements for her to see , and start pre TAVR evaluation. Cardinal signs of severe discussed. (2) Acute respiratory failure with hypoxia: Code(s): J96.01 - Acute respiratory failure with hypoxia Category: Medical Plan: Recent multifocal pneumonia with a residual hypoxemia and PRN home O2 use. Chest x-ray from 12/05/2024 shows [id number] left effusion with left basilar pneumonia. She has completed antibiotics and condition improving. She does not appear fluid overloaded on examination. (3) Pneumonia: Code(s): J18.9 - Pneumonia, unspecified organism Category: Medical Qualifiers: Laterality: bilateral Lung location: unspecified part of lung Pneumonia type: due to unspecified organism Qualified Code(s): J18.9 - Pneumonia, unspecified organism Plan: As above (4) Hospital discharge follow-up: Code(s): Z09 - Encounter for follow-up examination after completed treatment for conditions other than malignant neoplasm Category: Medical Plan: Discharge notes and summary reviewed Plan Time spent on chart review, documentation, interview and assessment Medications: Discontinued levofloxacin Discontinued Reason: Patient no longer taking 750 mg PO Q24H 7 tabs 0RF furosemide (Lasix) Discontinued Reason: Patient no longer taking 20 mg PO DAILY 90 tabs 0RF Coding Level of Care Code Est Pt Level 4 (73312) Complex EM visit Add On G2211 Diagnoses Non-rheumatic aortic stenosis I35.0 Acute respiratory failure with hypoxia J96.01 Pneumonia of both lungs due to infectious organism, unspecified part of lung J18.9 Laterality: bilateral Lung location: unspecified part of lung Pneumonia type: due to unspecified organism Hospital discharge follow-up Z09 Time Spent (min) 32
== END 2024-12-23 15:31 | disposition home or self-care (01) ==
PROVIDERS: PCP Internal Medicine; Visit Provider Nurse Practitioner Family
DX: I35.0 Nonrheumatic aortic (valve) stenosis (principal); J96.01 Acute respiratory failure with hypoxia; J18.9 Pneumonia, unspecified organism; Z09 Encounter for follow-up examination after completed treatment for conditions other than malignant neoplasm
CPT/HCPCS: 99214; G2211

== ENCOUNTER → 2024-12-23 14:24 | Outpatient (BNVA) | payer MEDICARE, SELFPAY | PROVIDERS: PCP Internal Medicine; Visit Provider Nurse Practitioner Family | DX: Z09 Encounter for follow-up examination after completed treatment for conditions other than malignant neoplasm (principal); I35.0 Nonrheumatic aortic (valve) stenosis; J96.01 Acute respiratory failure with hypoxia; J18.9 Pneumonia, unspecified organism | CPT/HCPCS: 99212 ==

== ENCOUNTER 2025-02-05 14:48 | Outpatient (AMB) | payer MEDICARE, SELFPAY ==
--- NOTE | 2025-02-05 14:58 | MHC.OFFVIS ---
Vital Signs 02/05/25 15:03 Height 5 ft 4 in Weight 121 lb 11.123 oz BMI 20.9 BP 120/60 Blood Pressure Location Lt brachial Position Sitting Pulse 96 Pulse Source Monitor Intake Visit Reasons: TAVR Consult Intake Note: TAVR Consult Animal Cytologist Required: No Accompanied by: Daughter Allergies celecoxib (From Celebrex) Allergy (Verified 12/23/24 14:48) Palpitations Medication List - Last Reconciled 02/05/25 by Rachid Pantoja MD loratadine (Claritin) 10 mg PO DAILY PRN metoprolol tartrate 25 mg PO Q12H 90 days walker (Ultra-Light Rollator misc) As directed HPI Comments Details: Pleasant 84 year female who is here for severe aortic valve stenosis and discussion for transcatheter aortic valve replacement. In November 2024 she presented with pneumonia to [facility] and developed episode of congestive heart failure while she was hospitalized. She was diuresed and sent home with some diuretics. Apparently she was doing well and has been taken off the diuretics by her primary care physician. I reviewed her echocardiogram from 11/28/2024 where ejection fraction was low normal 55%, she had severe asymmetric septal hypertrophy, severe calcification of aortic valve with severe aortic valve stenosis. Aortic valve area was 0.59 centimeters sq and mean gradient of 46 mm of Hg. She also had severe mitral annular calcification and had some gradient across the mitral valve but heart rate was 115 beats per minute. Since discharge from hospital she has been doing well. She has no edema or orthopnea. She does have dyspnea with activities and uses oxygen off and on. She was a smoker till her admission in hospital in November 2024 and has quit smoking since then. As per the daughter she has COPD but is currently not on any inhalers. No chest discomfort. No syncope. [facility] Medical History (Updated 02/05/25 @ 15:34 by Rachid Pantoja MD) Non-rheumatic aortic stenosis Social History Household Members: Children Household Members Other:: in law apartment attached to daughters home Housing: House Do you presently have visiting nurse or other home services: No Patient Tobacco Use Status: Current everyday Tobacco user Tobacco use type: Cigarette Cigarettes Per Day: 5 Years Smoked: 50 e-Cigarette/Vaping Use: Never Used service: No Review of Systems Const Denies chills, Denies fatigue, Denies fever(s), Denies frequent falls, Denies weakness, Denies weight gain and Denies weight loss ENT Denies dizziness Card Denies chest pain, Denies leg edema, Denies lightheadedness, Denies palpitations, Denies dyspnea and Denies dyspnea on exertion Resp Denies cough, Denies dyspnea and Denies dyspnea on exertion GI Denies hematochezia Musc Denies abnormal gait, Denies muscle weakness, Denies numbness, Denies radiating pain into limb and Denies tingling Neuro Denies abnormal gait, Denies dizziness, Denies frequent falls, Denies numbness, Denies tingling and Denies weakness Endo Denies fatigue and Denies palpitations Physical Exam Vital Signs: Last Vital Signs Pulse 96 02/05/25 15:03 BP 120/60 02/05/25 15:03 BMI result Body Mass Index 20.9 GENERAL APPEARANCE: in no acute distress, pleasant. NECK: murmur radiating to carotids, no jugular venous distention. SKIN: no suspicious lesions, warm and dry. HEART: Ejection systolic murmur aortic area with no 2nd heart sound, regular rate and rhythm. LUNGS: clear to auscultation bilaterally. ABDOMEN: soft, nontender. EXTREMITIES: no edema. PERIPHERAL PULSES: equal. NEUROLOGIC: No gross deficits, AAO X 3 Office Procedures EKG Details: Sinus rhythm 96 beats per minute, normal axis, minimal voltage criteria for left ventricular hypertrophy, nonspecific ST changes, QTC 442 milliseconds. [id number], Complete Assessment & Plan Assessment & Plan (1) Non-rheumatic aortic stenosis: Code(s): I35.0 - Nonrheumatic aortic (valve) stenosis Category: Medical (2) Chronic diastolic heart failure: Code(s): I50.32 - Chronic diastolic (congestive) heart failure Category: Medical Plan Pleasant 84 year female who is here for severe aortic valve stenosis. She had episode of heart failure in November 2024. Since then she has been stable. By echocardiography and exam she has severe aortic valve stenosis. We discussed about management options and she is interested in transcatheter aortic valve replacement. I think she will be a reasonable candidate for that. Her EKGs showing sinus rhythm with narrow QRS 96 milliseconds and minimal voltage criteria for left ventricular hypertrophy. No bleeding issues previously. We discussed in detail about pros and cons of transcatheter aortic valve replacement. She is interested and I am going to arrange a TAVR protocol CT for her. She will also see Cardiothoracic surgery in consultation and we will discuss her case in heart team meeting. I have discussed with the patient and her daughter about symptoms/signs of congestive heart failure and they will resume diuretics in case any of these symptoms/signs, up. She we will also reach out and update us in case she develops any symptoms. Clinically she appears euvolemic currently. Thank you for allowing me to participate in the care of your patient. Please feel free to contact me if you have any questions. Coding Level of Care Code New Pt Level 5 (02130) Diagnoses Non-rheumatic aortic stenosis I35.0 Chronic diastolic heart failure I50.32 CPT Codes EKG - CPT: 26152-[id number], Complete ([id number])
[2025-02-05 15:03] VITALS: BP 120/60; PULSE 96; BMI 20.9
== END 2025-02-05 15:32 | disposition home or self-care (01) ==
LOC: HO.HCS 14:49
PROVIDERS: PCP Internal Medicine; Visit Provider Internal Medicine Cardiovascular Disease
DX: I35.0 Nonrheumatic aortic (valve) stenosis (principal); I50.32 Chronic diastolic (congestive) heart failure; R94.31 Abnormal electrocardiogram [ECG] [EKG]
CPT/HCPCS: 93010; 99204

== ENCOUNTER → 2025-02-05 14:48 | Outpatient (BNVA) | payer MEDICARE, SELFPAY | PROVIDERS: PCP Internal Medicine; Visit Provider Internal Medicine Cardiovascular Disease | DX: I35.0 Nonrheumatic aortic (valve) stenosis (principal); I50.32 Chronic diastolic (congestive) heart failure | CPT/HCPCS: 93005; 99202 ==

== ENCOUNTER → 2025-04-24 23:59 | Outpatient (BNV) | payer MEDICARE, SELFPAY | PROVIDERS: PCP Internal Medicine; Visit Provider Internal Medicine Cardiovascular Disease | DX: I50.20 Unspecified systolic (congestive) heart failure (principal); I35.0 Nonrheumatic aortic (valve) stenosis | CPT/HCPCS: 33967; 93453; 93503; 99152 ==